=== PATIENT | male | born 1960 | race Caucasian/White ===

== ENCOUNTER → 2021-01-23 12:52 | Outpatient (CLI) | payer OTHER, SELFPAY ==
--- NOTE | 2021-01-23 15:33 | NEURO ---
NCS and/or EMG Patient Report Ordering Doctor: Navid Simmons DATE OF SERVICE: 01/23/21 Tom presents for electrodiagnostic testing of the right upper limb. He reports pain in the right elbow and numbness in the right hand. Electrodiagnostic findings: Right median motor nerve demonstrates prolonged distal latency with normal amplitude and reduced conduction velocity. Right ulnar motor nerve demonstrates normal distal latency and amplitude with an approximately 30% drop in conduction across the elbow. Prolonged right median sensory latency at the wrist and palm. On needle EMG, all muscles tested in the right upper limb showed no evidence of denervation with normal motor unit action potentials. Electrodiagnostic impression: This is an abnormal study in the right upper limb 1 Electrodiagnostic findings demonstrate right-sided median mononeuropathy. This is consistent with a mild to moderate right carpal tunnel syndrome. 2. Electrodiagnostic evidence demonstrates right ulnar neuropathy, consistent with a moderate right cubital tunnel syndrome.
== END ==
PROVIDERS: PCP Preventive Medicine Occupational Medicine; Referring Provider Orthopaedic Surgery; Visit Provider Orthopaedic Surgery
DX: M70.21 Olecranon bursitis, right elbow (principal)
CPT/HCPCS: 95886; 95910

== ENCOUNTER → 2025-04-24 | Outpatient (CLI) | payer OTHER, SELFPAY ==
--- OUTSIDE RECORDS SUMMARY | 2025-04-24 06:51 | XMS RPT_ITS | CCD ---
Author Organization [facility] Care Team Providers Care Journeyman Electrician Pv Installer Name Role Phone JOSE L MCGUIRE DO Primary Care Physician [phone] Mendy PT, Susie Unavailable Unavailable Jose L Mcguire Primary Care Provider [phone] JOSE L MCGUIRE DO Primary Care Physician [phone] JOHN CANADA Attending Unavailable JOSE L MCGUIRE DO Primary Care Unavailable TAMIKO SARKAR MD Attending Unavailable JOSE L MCGUIRE DO Primary Care Unavailable LEONCIO CAUSEY PA-C Attending Unavailable JOSE L MCGUIRE DO Primary Care Unavailable LEONCIO CAUSEY PA-C Attending Unavailable JOSE L MCGUIRE DO Primary Care Unavailable TAMIKO SARKAR MD Attending Unavailable SHAYLA ARREOLA, JOSE L Primary Care Unavailable TAMIKO SARKAR MD Attending Unavailable JOSE L MCGUIRE DO Primary Care Unavailable TAMIKO SARKAR MD Attending Unavailable JOSE L MCGUIRE DO Primary Care Unavailable TAMIKO SARKAR MD Attending Unavailable JOSE L MCGUIRE DO Primary Care Unavailable LUIS ALFREDO VIZCAINO, SOLOMON Primary Care JOHN Smith Attending Unav JOHN Montenegro Attending Unav ailable JOSE L MCGUIRE DO Primary Care Unavailable LUIS ALFREDO VIZCAINO, SOLOMON Primary Care Physician TAMIKO SARKAR MD Attending Unavailable LUIS ALFREDO VIZCAINO, SOLOMON Primary Care Anel ROYAL MD, DR CAMILO Milian Attending Unavailab le LUIS ALFREDO VIZCAINO, SOLOMON Primary Care Anel BLAKE PA-C, YVONNE [place] Attending Unavaila ble LUIS ALFREDO VIZCAINO, SOLOMON Primary Care Anel LOBATO APRN-CARMINE, SOLOMON Primary Care Anel SARKAR MD, TAMIKO Bruce Attending Unavailable JOSE L MCGUIRE DO Primary Care Unavailable TAMIKO SARKAR MD Attending Unavailable NANCIE VIZCAINO, JOHN Matam[place]os Attending JOSE L Hidalgo DO Primary Care Unavailable Camilo Royal Referring Unavailable Camilo Royal Attending Unavailable Cristóbal Childs Primary Care Unavailable Allergies Allergy Classification Reported Allergen(s) Allergy Type Date of Onset Reaction(s) Facility (20 sources) Penicillin; Translations: [penicillin] Drug Allergy Rash [facility] (2 sources) Penicillins Drug Allergy 2 [facility] (4 sources) Simvastatin; Translations: [simvastatin] Drug Allergy 4 Muscle pain (finding) [facility] ([facility]) Penicillins Drug allergy (disorder) 6 [facility] Medications Current Medications Medication Drug Class(es) Dates Sig (Normalized) Sig (Original) acetaminophen 325 mg / oxyCODONE hydrochloride 5 mg oral tablet (1 source) Opioid Agonist Start: 04-06-2022 End: 04-11-2022 take 1 tablet by mouth every eight hours as needed for pain oxyCODONE-acetam inophen (PERCOCET) 5-325 mg tablet Indications: Multiple contusions of trunk, initial encounter , Multiple leg contusions, left, initial encounter , Contusion of elbow and forearm, right, initial encounter Take 1 tablet by mouth every 8 hours as needed for pain for up to 5 days. 15 tablet 0 04/06/2022 04/11/2022 Active Comment on above: Take 1 tablet by stephen every 8 hours as needed for pain for up to 5 days. baclofen 10 mg oral tablet (4 sources) gamma-Aminobutyri c Acid-ergic Agonist Start: 06-03-2022 take 1-2 tablets by mouth three times daily as needed for muscle spasms baclofen 10 mg oral tablet 1-2 tabs, Oral, TID, PRN muscle spasm, # 40 tab(s), 0 Refill(s), Pharmacy: [facility] #[id number], Neck muscle spasm, 68.3, cm, 06/03/22 10:19:00 EDT, Height Start Date: 06/03/22 Status: Ordered calcium carbonate 600 MG / ergocalciferol 200 UNT Oral Capsule (20 sources) Provitamin D2 Compound Start: 07-30-2020 take 1 capsule by mouth twice daily calcium-vitamin D 600 mg-200 intl units (5 mcg) oral capsule Dose = 1 cap(s), Oral, BID, 0 Refill(s) Start Date: 07/30/20 Status: Ordered Medication Dispense Status: Completed Total Allowed Fills: 1 Fills Dispensed: 0 Start: 07-30-2020 take 1 capsule by me ut twice daily calcium-vitamin D 600 mg-200 intl units (5 mcg) oral capsule Dose = 1 cap(s), Oral, BID, 0 Refill(s) Start Date: 07/30/20 Status: Ordered Repeat number: 1 Start: 07-30-2020 take 1 capsule by me ut twice daily calcium-vitamin D 600 mg-200 intl units (5 mcg) oral capsule Dose = 1 cap(s), Oral, BID, 0 Refill(s) Start Date: 07/30/20 Status: Ordered cyclobenzaprine hydrochloride 10 mg oral tablet (2 sources) Muscle Relaxant Start: 05-30-2022 End: 05-31-2022 take 1 tablet by mouth three times daily Flexeril use cyclobenzaprine Dose : 10 mg =, Oral, TID, # 20 tab(s), 0 Refill(s), 05/31/22 18:15:00 EDT, Cervical strain Start Date: 05/30/22 Stop Date: 05/31/22 Status: Ordered Start: 02-14-2022 End: 02-24-2022 cyclobenzaprine 5 mg oral ta blet Dose : 5 mg = 1 tab(s), Oral, TID, NOTE!: Only if Skelaxin not covered by insurance!, X 10 day(s), # 30 tab(s), 0 Refill(s), 02/24/22 15:30:00 EDT, [id number], Fall from ladder Left elbow pain, 173.5, cm, 02/14/22 15:00:00 EDT... Start Date: 02/14/22 Stop Date: 02/24/22 Status: Ordered DME MISCellaneous (20 sources) Start: 01-07-2021 DME MISCellane ous See Instructions, Please provide 1 pair of bilateral wrist/hand splint for carpal tunnel. Size to fit. Diagnosis: g56.00 On at at bedtime off in a.m. also may wear for repetitive activities., # 1 EA, 0 Refill(s), Carpal tunnel syndrome, Dosing Weight Start Date: 01/07/21 Status: Ordered Medication Dispense Status: Completed Quantity: 1.0 Unit: EA Total Allowed Fills: 1 Fills Dispensed: 0 Indications: Carpal tunnel syndrome, unspecified upper limb; Start: 01-07-2021 DME MISCellane ous See Instructions, Please provide 1 pair of bilateral wrist/hand splint for carpal tunnel. Size to fit. Diagnosis: g56.00 On at at bedtime off in a.m. also may wear for repetitive activities., # 1 EA, 0 Refill(s), Carpal tunnel syndrome, Dosing Weight Start Date: 01/07/21 Status: Ordered Quantity: 1.0 Unit: EA Repeat number: 1 Indications: Carpal tunnel syndrome, unspecified upper limb; Start: 01-07-2021 DME MISCellane ous See Instructions, Please provide 1 pair of bilateral wrist/hand splint for carpal tunnel. Size to fit. Diagnosis: g56.00 On at at bedtime off in a.m. also may wear for repetitive activities., # 1 EA, 0 Refill(s), Carpal tunnel syndrome, Dosing Weight Start Date: 01/07/21 Status: Ordered Quantity: 1.0 Unit: EA Repeat number: 1 Indication: Carpal tunnel syndrome, unspecified upper limb Start: 01-07-2021 DME MISCellane ous See Instructions, Please provide 1 pair of bilateral wrist/hand splint for carpal tunnel. Size to fit. Diagnosis: g56.00 On at at bedtime off in a.m. also may wear for repetitive activities., # 1 EA, 0 Refill(s), Carpal tunnel syndrome, Dosing Weight Start Date: 01/07/21 Status: Ordered doxycycline hyclate 100 mg oral capsule (1 source) Tetracycline-class Drug Start: 04-06-2022 End: 04-16-2022 take 1 capsule by mouth twice daily doxycycline hyclate (VIBRAMYCIN) 100 mg capsule Indications: Multiple leg contusions, left, initial encounter Take 1 capsule by mouth twice daily for 10 days. 20 capsule 0 04/06/2022 04/16/2022 Active Comment on above: Take 1 capsule by mo [facility] twice daily for 10 days. 24 hr empagliflozin 12.5 mg / metFORMIN hydrochloride 1000 mg extended release oral tablet (20 sources) Biguanide, Sodium-Glucose Cotransporter 2 Inhibitor Start: 10-26-2020 take 1 tablet by mouth once daily Synjardy XR 12.5 mg-1000 mg oral tablet, extended release Dose = 2 tab(s), Oral, qDay, 0 Refill(s) Start Date: 10/26/20 Status: Ordered Medication Dispense Status: Completed Total Allowed Fills: 1 Fills Dispensed: 0 take 1 tablet by stephen th once daily at breakfast empagliflozin-metFORMIN (SYNJARDY) 12.5- 500 mg tab Take 1 tablet by mouth daily with breakfast. 0 Active Comment on above: Take 1 tablet by stephen daily with breakfast. ezetimibe 10 mg oral tablet (2 sources) Dietary Cholesterol Absorption Inhibitor Start: 01-02-2025 take 1 tablet by mouth once daily ezetimibe 10 mg oral tablet TAKE 1 TABLET BY MOUTH EVERY DAY Start Date: 01/02/25 Status: Ordered Medication Dispense Status: Completed Total Allowed Fills: 1 Fills Dispensed: 0 lidocaine 0.05 mg/mg medicated patch (1 source) Antiarrhythmic, Amide Local Anesthetic Start: 05-30-2022 End: 05-31-2022 lidocaine 5% topical patch Apply 1 patch(es), Transdermal, Daily, # 20 patch(es), 0 Refill(s), Cervical strain, 114 Start Date: 05/30/22 Stop Date: 05/31/22 Status: Ordered lisinopril 20 mg oral tablet (20 sources) Angiotensin Converting Enzyme Inhibitor Start: 01-02-2025 End: 07-01-2025 lisinopril 20 mg oral tablet Dose : 20 mg = 1 tab(s), Oral, Daily, # 90 tab(s), 1 Refill(s), Pharmacy: [facility] #[id number], 172, cm, 07/25/24 15:03:00 EST, Height, kg, 07/25/24 15:03:00 EST, Dosing Weight Start Date: 01/02/25 Stop Date: 07/01/25 Status: Ordered Medication Dispense Status: Completed Quantity: 90.0 Unit: tab(s) Total Allowed Fills: 2 Fills Dispensed: 0 Start: 05-26-2024 lisinopril 20 mg oral tablet Dose : 20 mg = 1 tab(s), Oral, Daily, # 100 tab(s), 3 Refill(s), Pharmacy: [facility] #[id number], 175.3, cm, 04/01/24 14:14:00 EDT, Height, kg, 04/01/24 14:14:00 EDT, Dosing Weight Start Date: 05/26/24 Status: Ordered Quantity: 100.0 Unit: tab(s) Repeat number: 4 Start: 07-20-2023 lisinopril 20 mg oral tablet Dose : 20 mg = 1 tab(s), Oral, Daily, # 100 tab(s), 3 Refill(s), [id number], 172, cm, 07/13/23 15:57:00 EST, Height, kg, 07/13/23 15:57:00 EST, Dosing Weight Start Date: 07/20/23 Status: Ordered Start: 04-27-2022 lisinopril 20 mg oral tablet Dose : 20 mg = 1 tab(s), Oral, Daily, # 90 tab(s), 3 Refill(s), [facility]acy: [facility] #[id number], 173.5, cm, 02/24/22 16:24:00 EDT, Height, kg, 02/24/22 16:24:00 EDT, Dosing Weight Start Date: 04/27/22 Status: Ordered Start: 02-04-2021 take 1 tablet by stephen once daily lisinopril (ZESTRIL, PRINIVIL) 20 mg tablet Take 20 mg by mouth once daily. 0 01/18/2022 Active Comment on above: Take 20 mg by mouth once daily. naproxen 500 mg oral tablet (1 source) Nonsteroidal Anti-inflammatory Drug Start: 05-30-2022 End: 05-31-2022 naproxen 500 mg oral tablet Dose : 500 mg = 1 tab(s), Oral, BID, # 14 tab(s), 0 Refill(s), 05/31/22 18:15:00 EDT, Cervical strain Start Date: 05/30/22 Stop Date: 05/31/22 Status: Ordered niacin 500 mg oral tablet (20 sources) Nicotinic Acid Start: 07-04-2019 take 1 mg by mouth once daily niacin 500 mg oral tablet mg = tab(s), Oral, qDay, 0 Refill(s) Start Date: 07/04/19 Status: Ordered Medication Dispense Status: Completed Total Allowed Fills: 1 Fills Dispensed: 0 Pen needles 4 mm (20 sources) Start: 10-13-2019 Pen needles 4 mm See Instructions, Use as directed weekly, # 25 EA, 0 Refill(s), Pharmacy: [address], Diabetes mellitus, 173, cm, 10/11/19 16:11:00 EST, Height, 125.8, kg, 10/11/19 16:11:00 EST, Dosing Weight Start Date: 10/13/19 Status: Ordered Medication Dispense Status: Completed Quantity: 25.0 Unit: EA Total Allowed Fills: 1 Fills Dispensed: 0 Indications: Type 2 diabetes mellitus without complications; Start: 10-13-2019 Pen needles 4 mm See Instructions, Use as directed weekly, # 25 EA, 0 Refill(s), Pharmacy: [address], Diabetes mellitus, 173, cm, 10/11/19 16:11:00 EST, Height, 125.8, kg, 10/11/19 16:11:00 EST, Dosing Weight Start Date: 10/13/19 Status: Ordered Quantity: 25.0 Unit: EA Repeat number: 1 Indications: Type 2 diabetes mellitus without complications; Start: 10-13-2019 Pen needles 4 mm See Instructions, Use as directed weekly, # 25 EA, 0 Refill(s), Pharmacy: [address], Diabetes mellitus, 173, cm, 10/11/19 16:11:00 EST, Height, 125.8, kg, 10/11/19 16:11:00 EST, Dosing Weight Start Date: 10/13/19 Status: Ordered Quantity: 25.0 Unit: EA Repeat number: 1 Indication: Type 2 diabetes mellitus without complications Start: 10-13-2019 Pen needles 4 mm See Instructions, Use as directed weekly, # 25 EA, 0 Refill(s), Pharmacy: [address] Diabetes mellitus, 173, cm, 10/11/19 16:11:00 EST, Height, 125.8, kg, 10/11/19 16:11:00 EST, Dosing Weight Start Date: 10/13/19 Status: Ordered 1 mg dose 1.5 ml semaglutide 1.34 mg/ml pen injector (20 sources) Start: 10-26-2020 Ozempic (1 mg dose) 2 mg/1.5 mL subcutaneous solution Dose : 1 mg =, Subcutaneous, qWeek, # 3 mL, 0 Refill(s) Start Date: 10/26/20 Status: Ordered Medication Dispense Status: Completed Quantity: 3.0 Unit: mL Total Allowed Fills: 1 Fills Dispensed: 0 sildenafil 100 mg oral tablet (5 sources) Phosphodiesterase 5 Inhibitor Start: 01-02-2025 sildenafil 100 mg oral tablet Dose : 100 mg = 1 tab(s), Oral, qDay, PRN as needed for erectile dysfunction, # 20 tab(s), 0 Refill(s), Pharmacy: [facility] #[id number], ED (erectile dysfunction), 172, cm, 07/25/24 15:03:00 EST, Height, kg, 07/25/24 15:03:00 EST, Dosing Weight Start Date: 01/02/25 Status: Ordered Medication Dispense Status: Completed Quantity: 20.0 Unit: tab(s) Total Allowed Fills: 1 Fills Dispensed: 0 Indications: Male erectile dysfunction, unspecified; Start: 07-01-2024 sildenafil 100 mg oral tablet Dose : 100 mg = 1 tab(s), Oral, qDay, PRN as needed for erectile dysfunction, # 20 tab(s), 0 Refill(s), Pharmacy: [facility] #[id number], ED (erectile dysfunction), 175.3, cm, 07/01/24 10:09:00 EST, Height, kg, 07/01/24 10:09:00 EST, Dosing Weight Start Date: 07/01/24 Status: Ordered Quantity: 20.0 Unit: tab(s) Repeat number: 1 Indications: Male erectile dysfunction, unspecified; tadalafil 20 mg oral tablet ( sources) Phosphodiesterase 5 Inhibitor Start: 01-25-2024 tadalafil 20 mg oral tablet Dose : 20 mg = 1 tab(s), Oral, qDay, Take 1 hour prior to sexual activity, # 30 tab(s), 1 Refill(s), Pharmacy: [facility] #[id number], ED (erectile dysfunction), 172, cm, 01/25/24 15:43:00 EDT, Height, kg, 01/25/24 15:43:00 EDT, Dosing Weight Start Date: 01/25/24 Status: Ordered Quantity: 30.0 Unit: tab(s) Repeat number: 2 Indications: Male erectile dysfunction, unspecified; Start: 02-04-2021 Cialis 20 mg o ral tablet Dose : 20 mg = 1 tab(s), Oral, qDay, Take 1 hour prior to sexual activity, # 30 tab(s), 1 Refill(s), Pharmacy: [id number] [facility], ED (erectile dysfunction), 174, cm, 02/04/21 8:41:00 EDT, Height, kg, 02/04/21 8:41:00 EDT, Dosing Weight Start Date: 02/04/21 Status: Ordered tiZANidine 4 mg oral tablet (1 source) Central alpha-2 Adrenergic Agonist Start: 04-06-2022 End: 04-09-2022 take 1 tablet by mouth every eight hours as needed tiZANidine (ZANAFLEX) 4 mg tablet Indications: Multiple contusions of trunk, initial encounter , Multiple leg contusions, left, initial encounter , Contusion of elbow and forearm, right, initial encounter Take 1 tablet by mouth every 8 hours as needed for up to 3 days. 9 tablet 0 04/06/2022 04/09/2022 Active Comment on above: Take 1 tablet by [facility] every 8 hours as needed for up to 3 days. Vitamin B12 250 mcg oral tablet (10 sources) Start: 01-25-2024 Vitamin B12 25 0 mcg oral tablet Dose : 250 mcg = 1 tab(s), Oral, qDay, # 30 tab(s), 0 Refill(s) Start Date: 01/25/24 Status: Ordered Medication Dispense Status: Completed Quantity: 30.0 Unit: tab(s) Total Allowed Fills: 1 Fills Dispensed: 0 Start: 01-25-2024 Vitamin B12 25 0 mcg oral tablet Dose : 250 mcg = 1 tab(s), Oral, qDay, # 30 tab(s), 0 Refill(s) Start Date: 01/25/24 Status: Ordered Quantity: 30.0 Unit: tab(s) Repeat number: 1 Start: 01-25-2024 Vitamin B12 25 0 mcg oral tablet Dose : 250 mcg = 1 tab(s), Oral, qDay, # 30 tab(s), 0 Refill(s) Start Date: 01/25/24 Status: Ordered Completed/Discontinued Medications Medication Drug Class(es) Dates Sig (Normalized) Sig (Original) bacitracin 0.5 unt/mg topical ointment (1 source) Start: 04-06-2022 End: 04-06-2022 bacitracin 500 unit/gram 1 application topical ointment Start: 04-06-2022 End: 04-06-2022 bacitracin 500 unit/gram 1 a pplication topical ointment dexamethasone 4 mg oral tablet (1 source) Corticosteroid Start: 04-06-2022 take 1 tablet by mouth once daily dexAMETHasone (DECADRON) 4 mg tablet Indications: Multiple contusions of trunk, initial encounter , Multiple leg contusions, left, initial encounter , Contusion of elbow and forearm, right, initial encounter Take 1 tablet by mouth once daily. 4 tablet 0 04/06/2022 Active Comment on above: Take 1 tablet by stephen th once daily. glimepiride 2 mg oral tablet (2 sources) Sulfonylurea take 1 tablet by mouth once daily at breakfast glimepiride (AMARYL) 2 mg tablet Take 2 mg by mouth daily with breakfast. 0 Active Comment on above: Take 2 mg by mouth d aily with breakfast. metaxalone 800 mg oral tablet (3 sources) Start: 02-14-2022 End: 02-24-2022 take 1 tablet by mouth three times daily metaxalone (SKELAXIN) 800 mg tablet take 1 tablet by mouth three times a day for 10 days 0 02/14/2022 Active Comment on above: take 1 tablet by stephen th three times a day for 10 days OZEMPIC 1 mg/dose (4 mg/3 mL) pen injector (2 sources) Start: 02-24-2022 inject 1 dose by subcutaneous injection every week OZEMPIC 1 mg/dose (4 mg/3 mL) pen injector inject 1 dose (1 MG) subcutaneously every week as directed 0 02/24/2022 Active Comment on above: inject 1 dose (1 MG) subcutaneously every week as directed Problems Problem Classification Problem Date Documented Date Episodic/Chronic Diabetes mellitus without complication (20 sources) Type 2 diabetes mellitus without complication 02-14-2022 Chronic Disorders of lipid metabolism (20 sources) Mixed hyperlipidemia 07-04-2019 Chronic Essential hypertension (20 sources) Essential hypertension 07-04-2019 Chronic Osteoarthritis (20 sources) Osteoarthritis of joint of left shoulder region; Translations: [Osteoarthritis of left hip joint] 01-04-2020 Chronic Other acquired deformities (1 source) Spondylolisthesis, lumbosacral region; Translations: [Spondylolisthesis, lumbosacral region] Onset: 04-21-2025 Episodic Other connective tissue disease (10 sources) Myalgia caused by statin 01-25-2024 Episodic Other connective tissue disease (1 source) Trochanteric bursitis of right hip; Translations: [Trochanteric bursitis, right hip] Episodic Other connective tissue disease (1 source) Trochanteric bursitis, right hip; Translations: [Trochanteric bursitis, right hip] Onset: 01-12-2025 Episodic Other inflammatory condition of skin (20 sources) Rosacea 11-05-2020 Chronic Other male genital disorders (20 sources) Impotence 07-04-2019 Chronic Other nervous system disorders (20 sources) Carpal tunnel syndrome 01-07-2021 Chronic Other nervous system disorders (1 source) Carpal tunnel syndrome of right wrist; Translations: [Carpal tunnel syndrome, right upper limb] Chronic Other non-traumatic joint disorders (20 sources) Rotator cuff arthropathy of left shoulder 07-24-2020 Episodic Other nutritional; endocrine; and metabolic disorders (20 sources) Morbid obesity 07-04-2019 Chronic Other nutritional; endocrine; and metabolic disorders (2 sources) Body mass index 30+ - obesity 01-02-2025 Chronic Residual codes; unclassified (20 sources) Obstructive sleep apnea syndrome 07-04-2019 Chronic Residual codes; unclassified (20 sources) History of arthroscopic procedure on shoulder 02-14-2022 Episodic Spondylosis; intervertebral disc disorders; other back problems (2 sources) Degeneration of cervical intervertebral disc; Translations: [Other cervical disc degeneration, unspecified cervical region] Onset: 01-12-2025 Chronic Spondylosis; intervertebral disc disorders; other back problems (20 sources) Backache; Translations: [Lumbar radiculopathy] Onset: 01-12-2025 01-06-2021 Episodic Sprains and strains (2 sources) Injury of muscle and tendon at neck level; Translations: [Strain of muscle, fascia and tendon at neck level, initial encounter] Onset: 05-30-2022 Episodic Superficial injury; contusion (5 sources) Contusion of multiple sites of trunk; Translations: [Contusion of thorax, unspecified, initial encounter] Episodic Unclassified (20 sources) Patient encounter status 12-26-2019 Unclassified (19 sources) Statin declined 02-24-2022 Unclassified (13 sources) Entrapment of left ulnar nerve at elbow 07-13-2023 Unclassified (4 sources) Statin not tolerated (context-dependent category) 07-25-2024 Results Test Name Value Interpretation Reference Range Facility .GFRon 04-01-2025 Estimated Glomerular Filtration Rate 60 ml/min/1.73sqm Normal [facility] Comment on above: Result Comment: Stages of Chronic Kidney Disease (CKD) Stage Description eGFR(ml/min/1.73 sq.m.) CKD 1 Normal kidney function or >=90 normal kindney function with possible kidney damage (ex. Proteinuria) CKD 2 Kidney damage with mild loss 60-89 of kidney function CKD 3a Mild to moderate loss of kidney 45-59 function CKD 3b Moderate to severe loss of 30-44 of kindey function CKD 4 Severe loss of kidney function 15-29 CKD 5 Kidney failure <15 Note: (go live 2024) the eGFR calculation was updated to the 2020 CKD-EPI creatinine equation without a race factor to calculate the eGFR results. Performed By: #### G , CMP #### [facility] [address] [place] [id number] A1Con 04-01-2025 Glucose [Mass/Vol] 160 mg/dL Normal [facility] Comment on above: Result Comment: Anne mated Average Glucose calculated by equation ((28.7xA1C)-46.7) Estimated average glucose (eAG) is a calculated value from Hemoglobin A1C and is parts representative of the average blood glucose level in the last 2-3 month period. Normal range: less than 114 mg/dL Performed By: #### A 1C, TSH, LIPID #### [address] [address] HbA1c (Bld) [Mass fraction] 7.2 % High 4.3-6.4 [facility] Comment on above: Performed By: #### A 1C, TSH, LIPID #### [place] [id number] CMPon 04-01-2025 Albumin Level 3.6 G/dL Normal 3.4-4.8 [facility] Comment on above: Performed By: #### G FR, CMP #### [place] [id number] Albumin/Globulin [Mass ratio] 0.9 {ratio} Low 1.1-2.5 [facility] Comment on above: Performed By: #### G FR, CMP #### [place] [id number] ALP [Catalytic activity/Vol] 67 U/L Normal 40-135 [facility] Comment on above: Performed By: #### G FR, CMP #### [place] [id number] ALT [Catalytic activity/Vol] 32 U/L Normal 16-63 [facility] Comment on above: Performed By: #### G FR, CMP #### [place] [id number] AST [Catalytic activity/Vol] 19 U/L Normal 10-40 [facility] Comment on above: Performed By: #### G FR, CMP #### [place] [id number] Bili Total 0.5 mg/dL Normal 0.2-1.0 [facility] Comment on above: Result Comment: Use of this assay is not recommended for patients undergoing treatment with eltrombopag due to the potential for falsely elevated results. Performed By: #### G FR, CMP #### [address] [address] BUN/Creatinine Ratio 31 ratio High 7-27 [facility] Comment on above: Performed By: #### G FR, CMP #### [address] [address] Calcium [Mass/Vol] 9.9 mg/dL Normal 8.4-10.2 [facility] Comment on above: Performed By: #### G FR, CMP #### [address] [address] Chloride [Moles/Vol] 104 mmol/L Normal 98-107 [facility] Comment on above: Performed By: #### G FR, CMP #### [place] [id number] CO2 [Moles/Vol] 26 mmol/L Normal 23-31 [facility] Comment on above: Performed By: #### G FR, CMP #### [place] [id number] Creatinine [Mass/Vol] 1.31 mg/dL High 0.67-1.17 [facility] Comment on above: Performed By: #### G FR, CMP #### [address] [address] Electrolyte Balance 11.0 mEq/L Normal 4.0-15.0 [facility] Comment on above: Performed By: #### G FR, CMP #### [address] [address] Globulin 3.8 G/dL Normal 2.7-4.4 [facility] Comment on above: Performed By: #### G FR, CMP #### [address] [address] Glucose [Mass/Vol] 148 mg/dL High 80-115 [facility] Comment on above: Performed By: #### G FR, CMP #### [address] [address] Potassium [Moles/Vol] 4.7 mmol/L Normal 3.5-5.1 [facility] Comment on above: Performed By: #### G , CMP #### [place] [id number] [place], [place] [address] Sodium [Moles/Vol] 141 mmol/L Normal 136-145 [facility] Comment on above: Performed By: #### G FR, CMP #### [id number] [place], [place] [address] Total Protein 7.4 G/dL Normal 6.4-8.2 [facility] Comment on above: Performed By: #### G , CMP #### [id number] [place], [place] [address] Urea nitrogen [Mass/Vol] 40 mg/dL High 7-18 [facility] Comment on above: Performed By: #### G , CMP #### [address] [address] LABORATORYOrdered By: SYSTEM SYSTEM on 04-01-2025 Albumin BCP dye [Mass/Vol] 3.6 G/dL Normal 3.4 - 4.8 G/dL AO ADM SS Albumin/Globulin [Mass ratio] 0.9 {ratio} Low 1.1 - 2.5 ratio AO ADM SS ALP [Catalytic activity/Vol] 67 U/L Normal 40 - 135 U/L AO ADM SS ALT With P-5'-P [Catalytic activity/Vol] 32 U/L Normal 16 - 63 U/L AO ADM SS AST With P-5'-P [Catalytic activity/Vol] 19 U/L Normal 10 - 40 U/L AO ADM SS Bilirubin [Mass/Vol] 0.5 mg/dL Normal 0.2 - 1 .0 mg/dL AO ADM SS Comment on above: Interpretive Data: U se of this assay is not recommended for patients undergoing treatment with eltrombopag due to the potential for falsely elevated results. Calcium [Mass/Vol] 9.9 mg/dL Normal 8.4 - 10. 2 mg/dL AO ADM SS Chloride [Moles/Vol] 104 mmol/L Normal 98 - 10 7 mmol/L AO ADM SS CO2 [Moles/Vol] 26 mmol/L Normal 23 - 31 mmol/L AO ADM SS Creatinine [Mass/Vol] 1.31 mg/dL High 0.67 - 1.17 mg/dL AO ADM SS Electrolyte Balance 11.0 mEq/L Normal 4.0 - 15 .0 mEq/L AO ADM SS Estimated Glomerular Filtration Rate 60 ml/min/1.73sqm Invalid Interpretation Code AO Chemistry S Comment on above: Interpretive Data: Stages of Chronic Kidney Disease (CKD) Stage Description eGFR(ml/min/1.73 sq.m.) CKD 1 Normal kidney function or >=90 normal kindney function with possible kidney damage (ex. Proteinuria) CKD 2 Kidney damage with mild loss 60-89 of kidney function CKD 3a Mild to moderate loss of kidney 45-59 function CKD 3b Moderate to severe loss of 30-44 of kindey function CKD 4 Severe loss of kidney function 15-29 CKD 5 Kidney failure <15 Note: (go live 2024) the eGFR calculation was updated to the 2020 CKD-EPI creatinine equation without a race factor to calculate the eGFR results. Globulin 3.8 G/dL Normal 2.7 - 4.4 G/dL AO ADM SS Glucose [Mass/Vol] 160 mg/dL Invalid Interpretation Code AO Chemistry S Comment on above: Interpretive Data: E stimated average glucose (eAG) is a calculated value from Hemoglobin A1C and is parts representative of the average blood glucose level in the last 2-3 month period. Normal range: less than 114 mg/dL Glucose [Mass/Vol] 148 mg/dL High 80 - 115 mg/dL AO ADM SS HbA1c (Bld) [Mass fraction] 7.2 % High 4.3 - 6.4 % AO ADM SS Potassium [Moles/Vol] 4.7 mmol/L Normal 3.5 - 5.1 mmol/L AO ADM SS Protein [Mass/Vol] 7.4 G/dL Normal 6.4 - 8.2 G/dL AO ADM SS Sodium [Moles/Vol] 141 mmol/L Normal 136 - 145 mmol/L AO ADM SS TSH Qn 1.50 m[IU]/L Normal 0.36 - 3.74 mcIU/mL AO ADM SS Urea nitrogen [Mass/Vol] 40 mg/dL High 7 - 18 mg/dL AO ADM SS Urea nitrogen/Creatinine [Mass ratio] 31 ratio High 7 - 27 ratio AO ADM SS LABORATORYOrdered By: Smitha Rodriguez on 04-01-2025 Cholesterol [Mass/Vol] 179 mg/dL Normal 0 - 200 mg/dL AO ADM SS Comment on above: Interpretive Data: C holesterol Reference Interval: Less than 200 Desirable 200-239 Borderline high risk 240 and above High risk Cholesterol in HDL [Mass/Vol] 51 mg/dL Normal 40 - 60 mg/dL AO ADM SS Cholesterol in LDL [Mass/Vol] 108 mg/dL Normal 0 - 130 mg/dL AO ADM SS Triglyceride [Mass/Vol] 101 mg/dL Normal 0 - 150 mg/dL AO ADM SS Comment on above: Interpretive Data: T riglyceride Reference Interval: Less than 150 Normal 150-199 Borderline high risk 200-499 High risk 500 or higher Very high risk LIPIDon 04-01-2025 Cholesterol [Mass/Vol] 179 mg/dL Normal 0-200 [facility] Comment on above: Result Comment: Chol esterol Reference Interval: Less than 200 Desirable 200-239 Borderline high risk 240 and above High risk Performed By: #### A 1C, TSH, LIPID #### [place] [id number] Cholesterol in HDL [Mass/Vol] 51 mg/dL Normal 40-60 [facility] Comment on above: Performed By: #### A 1C, TSH, LIPID #### [address] [address] Cholesterol in LDL [Mass/Vol] 108 mg/dL Normal 0-130 [facility] Comment on above: Performed By: #### A 1C, TSH, LIPID #### [address] [address] Triglyceride [Mass/Vol] 101 mg/dL Normal 0-150 [facility] Comment on above: Result Comment: Trig lyceride Reference Interval: Less than 150 Normal 150-199 Borderline high risk 200-499 High risk 500 or higher Very high risk Performed By: #### A 1C, TSH, LIPID #### [address] [address] TSHon 04-01-2025 TSH Qn 1.50 m[IU]/L Normal 0.36-3.74 [facility] Comment on above: Performed By: #### A 1C, TSH, LIPID #### [address] [address] .GFRon 12-31-2024 Estimated Glomerular Filtration Rate 58 ml/min/1.73sqm Normal [facility] Comment on above: Result Comment: Stages of Chronic Kidney Disease (CKD) Stage Description eGFR(ml/min/1.73 sq.m.) CKD 1 Normal kidney function or >=90 normal kindney function with possible kidney damage (ex. Proteinuria) CKD 2 Kidney damage with mild loss 60-89 of kidney function CKD 3a Mild to moderate loss of kidney 45-59 function CKD 3b Moderate to severe loss of 30-44 of kindey function CKD 4 Severe loss of kidney function 15-29 CKD 5 Kidney failure <15 Note: (go live 2024) the eGFR calculation was updated to the 2020 CKD-EPI creatinine equation without a race factor to calculate the eGFR results. Performed By: #### C MP, A1C, GFR #### [address] [address] #### B12 #### [place] [address] A1Con 12-31-2024 Glucose [Mass/Vol] 163 mg/dL Normal [facility] Comment on above: Result Comment: Anne mated Average Glucose calculated by equation ((28.7xA1C)-46.7) Estimated average glucose (eAG) is a calculated value from Hemoglobin A1C and is parts representative of the average blood glucose level in the last 2-3 month period. Normal range: less than 114 mg/dL Performed By: #### C MP, A1C, GFR #### [address] [address] #### B12 #### [address] [address] HbA1c (Bld) [Mass fraction] 7.3 % High 4.3-6.4 [facility] Comment on above: Performed By: #### C MP, A1C, GFR #### [address] [address] #### B12 #### [address] [address] B12on 12-31-2024 Cobalamin (Vitamin B12) [Mass/Vol] 936 pg/mL High 211-911 [facility] Comment on above: Performed By: #### C MP, A1C, GFR #### [address] [address] #### B12 #### [address] [address] CMPon 12-31-2024 Albumin Level 3.7 G/dL Normal 3.4-4.8 [facility] Comment on above: Performed By: #### C MP, A1C, GFR #### [address] [address] #### B12 #### [address] [address] Albumin/Globulin [Mass ratio] 0.9 {ratio} Low 1.1-2.5 [facility] Comment on above: Performed By: #### C MP, A1C, GFR #### [address] [address] #### B12 #### [address] [address] ALP [Catalytic activity/Vol] 67 U/L Normal 40-135 [facility] Comment on above: Performed By: #### C MP, A1C, GFR #### [address] [address] #### B12 #### [address] [address] ALT [Catalytic activity/Vol] 32 U/L Normal 16-63 [facility] Comment on above: Performed By: #### C MP, A1C, GFR #### [address] [address] #### B12 #### [address] [address] AST [Catalytic activity/Vol] 17 U/L Normal 10-40 [facility] Comment on above: Performed By: #### C MP, A1C, GFR #### [address] [address] #### B12 #### [address] [address] Bili Total 0.9 mg/dL Normal 0.2-1.0 [facility] Comment on above: Result Comment: Use of this assay is not recommended for patients undergoing treatment with eltrombopag due to the potential for falsely elevated results. Performed By: #### C MP, A1C, GFR #### [place] [address] #### B12 #### [place] [address] BUN/Creatinine Ratio 28 ratio High 7-27 [facility] Comment on above: Performed By: #### C MP, A1C, GFR #### [place] [address] #### B12 #### [address] [address] Calcium [Mass/Vol] 10.2 mg/dL Normal 8.4-10.2 [facility] Comment on above: Performed By: #### C MP, A1C, GFR #### [place] [address] #### B12 #### [address] [address] Chloride [Moles/Vol] 103 mmol/L Normal 98-107 [facility] Comment on above: Performed By: #### C MP, A1C, GFR #### [place] [address] #### B12 #### [address] [address] CO2 [Moles/Vol] 25 mmol/L Normal 23-31 [facility] Comment on above: Performed By: #### C MP, A1C, GFR #### [place] [address] #### B12 #### [address] [address] Creatinine [Mass/Vol] 1.36 mg/dL High 0.67-1.17 [facility] Comment on above: Performed By: #### C MP, A1C, GFR #### [address] [address] #### B12 #### [address] [address] Electrolyte Balance 11.0 mEq/L Normal 4.0-15.0 [facility] Comment on above: Performed By: #### C MP, A1C, GFR #### [address] [address] #### B12 #### [address] [address] Globulin 3.9 G/dL Normal 2.7-4.4 [facility] Comment on above: Performed By: #### C MP, A1C, GFR #### [address] [address] #### B12 #### [address] [address] Glucose [Mass/Vol] 157 mg/dL High 80-115 [facility] Comment on above: Performed By: #### C MP, A1C, GFR #### [address] [address] #### B12 #### [address] [address] Potassium [Moles/Vol] 4.8 mmol/L Normal 3.5-5.1 [facility] Comment on above: Performed By: #### C MP, A1C, GFR #### [address] [address] #### B12 #### [address] [address] Sodium [Moles/Vol] 139 mmol/L Normal 136-145 [facility] Comment on above: Performed By: #### C MP, A1C, GFR #### [address] [address] #### B12 #### [address] [address] Total Protein 7.6 G/dL Normal 6.4-8.2 [facility] Comment on above: Performed By: #### C MP, A1C, GFR #### [address] [place], [place] [address] #### B12 #### [address] [address] Urea nitrogen [Mass/Vol] 38 mg/dL High 7-18 [facility] Comment on above: Performed By: #### C MP, A1C, GFR #### [address] [place], [place] [address] #### B12 #### [address] [address] LABORATORYOrdered By: SYSTEM SYSTEM on 12-31-2024 Albumin BCP dye [Mass/Vol] 3.7 G/dL Normal 3.4 - 4.8 G/dL AO ADM SS Albumin/Globulin [Mass ratio] 0.9 {ratio} Low 1.1 - 2.5 ratio AO ADM SS ALP [Catalytic activity/Vol] 67 U/L Normal 40 - 135 U/L AO ADM SS ALT With P-5'-P [Catalytic activity/Vol] 32 U/L Normal 16 - 63 U/L AO ADM SS AST With P-5'-P [Catalytic activity/Vol] 17 U/L Normal 10 - 40 U/L AO ADM SS Bilirubin [Mass/Vol] 0.9 mg/dL Normal 0.2 - 1 .0 mg/dL AO ADM SS Comment on above: Interpretive Data: U se of this assay is not recommended for patients undergoing treatment with eltrombopag due to the potential for falsely elevated results. Calcium [Mass/Vol] 10.2 mg/dL Normal 8.4 - 10. 2 mg/dL AO ADM SS Chloride [Moles/Vol] 103 mmol/L Normal 98 - 10 7 mmol/L AO ADM SS CO2 [Moles/Vol] 25 mmol/L Normal 23 - 31 mmol/L AO ADM SS Cobalamin (Vitamin B12) [Mass/Vol] 936 pg/mL High 211 - 911 pg/mL AH ADM SS Creatinine [Mass/Vol] 1.36 mg/dL High 0.67 - 1.17 mg/dL AO ADM SS Electrolyte Balance 11.0 mEq/L Normal 4.0 - 15 .0 mEq/L AO ADM SS Estimated Glomerular Filtration Rate 58 ml/min/1.73sqm Invalid Interpretation Code AO Chemistry S Comment on above: Interpretive Data: Stages of Chronic Kidney Disease (CKD) Stage Description eGFR(ml/min/1.73 sq.m.) CKD 1 Normal kidney function or >=90 normal kindney function with possible kidney damage (ex. Proteinuria) CKD 2 Kidney damage with mild loss 60-89 of kidney function CKD 3a Mild to moderate loss of kidney 45-59 function CKD 3b Moderate to severe loss of 30-44 of kindey function CKD 4 Severe loss of kidney function 15-29 CKD 5 Kidney failure <15 Note: (go live 2024) the eGFR calculation was updated to the 2020 CKD-EPI creatinine equation without a race factor to calculate the eGFR results. Globulin 3.9 G/dL Normal 2.7 - 4.4 G/dL AO ADM SS Glucose [Mass/Vol] 157 mg/dL High 80 - 115 mg/dL AO ADM SS Glucose [Mass/Vol] 163 mg/dL Invalid Interpretation Code AO Chemistry S Comment on above: Interpretive Data: E stimated average glucose (eAG) is a calculated value from Hemoglobin A1C and is parts representative of the average blood glucose level in the last 2-3 month period. Normal range: less than 114 mg/dL HbA1c (Bld) [Mass fraction] 7.3 % High 4.3 - 6.4 % AO ADM SS Potassium [Moles/Vol] 4.8 mmol/L Normal 3.5 - 5.1 mmol/L AO ADM SS Protein [Mass/Vol] 7.6 G/dL Normal 6.4 - 8.2 G/dL AO ADM SS Sodium [Moles/Vol] 139 mmol/L Normal 136 - 145 mmol/L AO ADM SS Urea nitrogen [Mass/Vol] 38 mg/dL High 7 - 18 mg/dL AO ADM SS Urea nitrogen/Creatinine [Mass ratio] 28 ratio High 7 - 27 ratio AO ADM SS .GFRon 09-17-2024 GFR 78 ml/min/1.73sqm Normal [facility] Comment on above: Result Comment: GFR Population mean for , Non- Americans Ages 20-29 = 116 mL/min/1.73 sq.m. Ages 30-39 = 107 mL/min/1.73 sq.m. Ages 40-49 = 99 mL/min/1.73 sq.m. Ages 50-59 = 93 mL/min/1.73 sq.m. Ages 60-69 = 85 mL/min/1.73 sq.m. Ages 70+ = 75 mL/min/1.73 sq.m. Chronic Kidney Disease: Less than 60 mL/min/1.73 square meters End Stage Renal Disease: Less than 15 mL/min/1.73 square meters Performed By: #### A 1C, TSH, LIPID #### [address] [address] GFR Non- 64 ml/min/1.73sqm Normal [facility] Comment on above: Result Comment: GFR Population mean for , Non- Americans Ages 20-29 = 116 mL/min/1.73 sq.m. Ages 30-39 = 107 mL/min/1.73 sq.m. Ages 40-49 = 99 mL/min/1.73 sq.m. Ages 50-59 = 93 mL/min/1.73 sq.m. Ages 60-69 = 85 mL/min/1.73 sq.m. Ages 70+ = 75 mL/min/1.73 sq.m. Chronic Kidney Disease: Less than 60 mL/min/1.73 square meters End Stage Renal Disease: Less than 15 mL/min/1.73 square meters Performed By: #### A 1C, TSH, LIPID #### [address] [address] A1Con 09-17-2024 Glucose [Mass/Vol] 154 mg/dL Normal [facility] Comment on above: Result Comment: Anne mated Average Glucose calculated by equation ((28.7xA1C)-46.7) Estimated average glucose (eAG) is a calculated value from Hemoglobin A1C and is parts representative of the average blood glucose level in the last 2-3 month period. Normal range: less than 114 mg/dL Performed By: #### A 1C, TSH, LIPID #### [id number] [place], [place] [address] HbA1c (Bld) [Mass fraction] 7.0 % High 4.3-6.4 [facility] Comment on above: Performed By: #### A 1C, TSH, LIPID #### [address] [address] CMPon 09-17-2024 Albumin Level 3.7 G/dL Normal 3.4-4.8 [facility] Comment on above: Performed By: #### A 1C, TSH, LIPID #### [address] [address] Albumin/Globulin [Mass ratio] 1.0 {ratio} Low 1.1-2.5 [facility] Comment on above: Performed By: #### A 1C, TSH, LIPID #### [address] [address] ALP [Catalytic activity/Vol] 62 U/L Normal 40-135 [facility] Comment on above: Performed By: #### A 1C, TSH, LIPID #### [address] [address] ALT [Catalytic activity/Vol] 37 U/L Normal 16-63 [facility] Comment on above: Performed By: #### A 1C, TSH, LIPID #### [address] [address] AST [Catalytic activity/Vol] 20 U/L Normal 10-40 [facility] Comment on above: Performed By: #### A 1C, TSH, LIPID #### [address] [address] Bili Total 0.7 mg/dL Normal 0.2-1.0 [facility] Comment on above: Result Comment: Use of this assay is not recommended for patients undergoing treatment with eltrombopag due to the potential for falsely elevated results. Performed By: #### A 1C, TSH, LIPID #### [address] [address] BUN/Creatinine Ratio 30 ratio High 7-27 [facility] Comment on above: Performed By: #### A 1C, TSH, LIPID #### [address] [address] Calcium [Mass/Vol] 9.3 mg/dL Normal 8.4-10.2 [facility] Comment on above: Performed By: #### A 1C, TSH, LIPID #### [address] [address] Chloride [Moles/Vol] 102 mmol/L Normal 98-107 [facility] Comment on above: Performed By: #### A 1C, TSH, LIPID #### [address] [address] CO2 [Moles/Vol] 28 mmol/L Normal 23-31 [facility] Comment on above: Performed By: #### A 1C, TSH, LIPID #### [address] [address] Creatinine [Mass/Vol] 1.15 mg/dL Normal 0.70-1.30 [facility] Comment on above: Result Comment: Test ing performed on Siemens Dimension EXL analyzer using a modified kinetic Jerilyn technique. Performed By: #### A 1C, TSH, LIPID #### [address] [address] Electrolyte Balance 7.0 mEq/L Normal 4.0-15.0 [facility] Comment on above: Performed By: #### A 1C, TSH, LIPID #### [address] [address] Globulin 3.7 G/dL Normal [facility] Comment on above: Performed By: #### A 1C, TSH, LIPID #### [address] [address] Glucose [Mass/Vol] 146 mg/dL High 80-115 [facility] Comment on above: Performed By: #### A 1C, TSH, LIPID #### [address] [address] Potassium [Moles/Vol] 4.4 mmol/L Normal 3.5-5.1 [facility] Comment on above: Performed By: #### A 1C, TSH, LIPID #### [address] [address] Sodium [Moles/Vol] 137 mmol/L Normal 136-145 [facility] Comment on above: Performed By: #### A 1C, TSH, LIPID #### [facility] [address] [place], [place] [address] Total Protein 7.4 G/dL Normal 6.4-8.2 [facility] Comment on above: Performed By: #### A 1C, TSH, LIPID #### [facility] [address] [place], [place] [address] Urea nitrogen [Mass/Vol] 34 mg/dL High 7-18 [facility] Comment on above: Performed By: #### A 1C, TSH, LIPID #### [facility] [address] [place], [place] [address] LABORATORYOrdered By: SYSTEM SYSTEM on 09-17-2024 Albumin BCP dye [Mass/Vol] 3.7 G/dL Normal 3.4 - 4.8 G/dL AO ADM SS Albumin/Globulin [Mass ratio] 1.0 {ratio} Low 1.1 - 2.5 ratio AO ADM SS ALP [Catalytic activity/Vol] 62 U/L Normal 40 - 135 U/L AO ADM SS ALT With P-5'-P [Catalytic activity/Vol] 37 U/L Normal 16 - 63 U/L AO ADM SS AST With P-5'-P [Catalytic activity/Vol] 20 U/L Normal 10 - 40 U/L AO ADM SS Bilirubin [Mass/Vol] 0.7 mg/dL Normal 0.2 - 1 .0 mg/dL AO ADM SS Comment on above: Interpretive Data: U se of this assay is not recommended for patients undergoing treatment with eltrombopag due to the potential for falsely elevated results. Calcium [Mass/Vol] 9.3 mg/dL Normal 8.4 - 10. 2 mg/dL AO ADM SS Chloride [Moles/Vol] 102 mmol/L Normal 98 - 10 7 mmol/L AO ADM SS CO2 [Moles/Vol] 28 mmol/L Normal 23 - 31 mmol/L AO ADM SS Creatinine [Mass/Vol] 1.15 mg/dL Normal 0.70 - 1.30 mg/dL AO ADM SS Comment on above: Interpretive Data: T esting performed on Siemens Dimension EXL analyzer using a modified kinetic Jerilyn technique. Electrolyte Balance 7.0 mEq/L Normal 4.0 - 15 .0 mEq/L AO ADM SS GFR/1.73 sq M.predicted among blacks MDRD (S/P/Bld) [Vol rate/Area] 78 ml/min/1.73sqm Invalid Interpretation Code AO Chemistry S Comment on above: Interpretive Data: GFR Population mean for , Non- Americans Ages 20-29 = 116 mL/min/1.73 sq.m. Ages 30-39 = 107 mL/min/1.73 sq.m. Ages 40-49 = 99 mL/min/1.73 sq.m. Ages 50-59 = 93 mL/min/1.73 sq.m. Ages 60-69 = 85 mL/min/1.73 sq.m. Ages 70+ = 75 mL/min/1.73 sq.m. Chronic Kidney Disease: Less than 60 mL/min/1.73 square meters End Stage Renal Disease: Less than 15 mL/min/1.73 square meters GFR/1.73 sq M.predicted among non-blacks MDRD (S/P/Bld) [Vol rate/Area] 64 ml/min/1.73sqm Invalid Interpretation Code AO Chemistry S Comment on above: Interpretive Data: GFR Population mean for , Non- Americans Ages 20-29 = 116 mL/min/1.73 sq.m. Ages 30-39 = 107 mL/min/1.73 sq.m. Ages 40-49 = 99 mL/min/1.73 sq.m. Ages 50-59 = 93 mL/min/1.73 sq.m. Ages 60-69 = 85 mL/min/1.73 sq.m. Ages 70+ = 75 mL/min/1.73 sq.m. Chronic Kidney Disease: Less than 60 mL/min/1.73 square meters End Stage Renal Disease: Less than 15 mL/min/1.73 square meters Globulin 3.7 G/dL Invalid Interpretation Code AO ADM SS Glucose [Mass/Vol] 146 mg/dL High 80 - 115 mg/dL AO ADM SS Glucose [Mass/Vol] 154 mg/dL Invalid Interpretation Code AO Chemistry S Comment on above: Interpretive Data: E stimated average glucose (eAG) is a calculated value from Hemoglobin A1C and is parts representative of the average blood glucose level in the last 2-3 month period. Normal range: less than 114 mg/dL HbA1c (Bld) [Mass fraction] 7.0 % High 4.3 - 6.4 % AO ADM SS Potassium [Moles/Vol] 4.4 mmol/L Normal 3.5 - 5.1 mmol/L AO ADM SS Protein [Mass/Vol] 7.4 G/dL Normal 6.4 - 8.2 G/dL AO ADM SS Sodium [Moles/Vol] 137 mmol/L Normal 136 - 145 mmol/L AO ADM SS Urea nitrogen [Mass/Vol] 34 mg/dL High 7 - 18 mg/dL AO ADM SS Urea nitrogen/Creatinine [Mass ratio] 30 ratio High 7 - 27 ratio AO ADM SS LABORATORYOrdered By: Lulu Chapman on 09-17-2024 Cholesterol [Mass/Vol] 161 mg/dL Normal 0 - 200 mg/dL AO ADM SS Comment on above: Interpretive Data: C holesterol Reference Interval: Less than 200 Desirable 200-239 Borderline high risk 240 and above High risk Cholesterol in HDL [Mass/Vol] 58 mg/dL Normal 40 - 60 mg/dL AO ADM SS Cholesterol in LDL [Mass/Vol] 83 mg/dL Normal 0 - 130 mg/dL AO ADM SS Triglyceride [Mass/Vol] 98 mg/dL Normal 0 - 150 mg/dL AO ADM SS Comment on above: Interpretive Data: T riglyceride Reference Interval: Less than 150 Normal 150-199 Borderline high risk 200-499 High risk 500 or higher Very high risk LIPIDon 09-17-2024 Cholesterol [Mass/Vol] 161 mg/dL Normal 0-200 [facility] Comment on above: Result Comment: Chol esterol Reference Interval: Less than 200 Desirable 200-239 Borderline high risk 240 and above High risk Performed By: #### A 1C, TSH, LIPID #### [address] [address] Cholesterol in HDL [Mass/Vol] 58 mg/dL Normal 40-60 [facility] Comment on above: Performed By: #### A 1C, TSH, LIPID #### [address] [address] Cholesterol in LDL [Mass/Vol] 83 mg/dL Normal 0-130 [facility] Comment on above: Performed By: #### A 1C, TSH, LIPID #### [id number] [place], [place] [address] Triglyceride [Mass/Vol] 98 mg/dL Normal 0-150 [facility] Comment on above: Result Comment: Trig lyceride Reference Interval: Less than 150 Normal 150-199 Borderline high risk 200-499 High risk 500 or higher Very high risk Performed By: #### A 1C, TSH, LIPID #### [address] [address] .GFRon 06-25-2024 GFR 72 ml/min/1.73sqm Normal [facility] Comment on above: Result Comment: GFR Population mean for , Non- Americans Ages 20-29 = 116 mL/min/1.73 sq.m. Ages 30-39 = 107 mL/min/1.73 sq.m. Ages 40-49 = 99 mL/min/1.73 sq.m. Ages 50-59 = 93 mL/min/1.73 sq.m. Ages 60-69 = 85 mL/min/1.73 sq.m. Ages 70+ = 75 mL/min/1.73 sq.m. Chronic Kidney Disease: Less than 60 mL/min/1.73 square meters End Stage Renal Disease: Less than 15 mL/min/1.73 square meters Performed By: #### A 1C, TSH, LIPID #### [address] [address] GFR Non- 59 ml/min/1.73sqm Normal [facility] Comment on above: Result Comment: GFR Population mean for , Non- Americans Ages 20-29 = 116 mL/min/1.73 sq.m. Ages 30-39 = 107 mL/min/1.73 sq.m. Ages 40-49 = 99 mL/min/1.73 sq.m. Ages 50-59 = 93 mL/min/1.73 sq.m. Ages 60-69 = 85 mL/min/1.73 sq.m. Ages 70+ = 75 mL/min/1.73 sq.m. Chronic Kidney Disease: Less than 60 mL/min/1.73 square meters End Stage Renal Disease: Less than 15 mL/min/1.73 square meters Performed By: #### A Beverly TSH, LIPID #### [address] [address] A1Con 06-25-2024 Glucose [Mass/Vol] 174 mg/dL Normal [facility] Comment on above: Result Comment: Anne mated Average Glucose calculated by equation ((28.7xA1C)-46.7) Estimated average glucose (eAG) is a calculated value from Hemoglobin A1C and is parts representative of the average blood glucose level in the last 2-3 month period. Normal range: less than 114 mg/dL Performed By: #### A Beverly TSH, LIPID #### [address] [address] HbA1c (Bld) [Mass fraction] 7.7 % High 4.3-6.4 [facility] Comment on above: Performed By: #### A Beverly TSH, LIPID #### [address] [address] CMPon 06-25-2024 Albumin Level 3.6 G/dL Normal 3.4-4.8 [facility] Comment on above: Performed By: #### A Beverly TSH, LIPID #### [address] [address] Albumin/Globulin [Mass ratio] 1.1 {ratio} Normal 1.1-2.5 [facility] Comment on above: Performed By: #### A 1C TSH, LIPID #### [address] [address] ALP [Catalytic activity/Vol] 70 U/L Normal 40-135 [facility] Comment on above: Performed By: #### A 1C, TSH, LIPID #### [address] [address] ALT [Catalytic activity/Vol] 46 U/L Normal 16-63 [facility] Comment on above: Performed By: #### A 1C, TSH, LIPID #### [address] [address] AST [Catalytic activity/Vol] 20 U/L Normal 10-40 [facility] Comment on above: Performed By: #### A 1C, TSH, LIPID #### [place] [address] Bili Total 0.6 mg/dL Normal 0.2-1.0 [facility] Comment on above: Result Comment: Use of this assay is not recommended for patients undergoing treatment with eltrombopag due to the potential for falsely elevated results. Performed By: #### A 1C, TSH, LIPID #### [place] [address] BUN/Creatinine Ratio 18 ratio Normal 7-27 [facility] Comment on above: Performed By: #### A 1C, TSH, LIPID #### [place] [address] Calcium [Mass/Vol] 9.5 mg/dL Normal 8.4-10.2 [facility] Comment on above: Performed By: #### A 1C, TSH, LIPID #### [place] [address] Chloride [Moles/Vol] 104 mmol/L Normal 98-107 [facility] Comment on above: Performed By: #### A 1C, TSH, LIPID #### [place] [address] CO2 [Moles/Vol] 27 mmol/L Normal 23-31 [facility] Comment on above: Performed By: #### A 1C, TSH, LIPID #### [place] [address] Creatinine [Mass/Vol] 1.23 mg/dL Normal 0.70-1.30 [facility] Comment on above: Result Comment: Test ing performed on Siemens Dimension EXL analyzer using a modified kinetic Jerilyn technique. Performed By: #### A 1C, TSH, LIPID #### [place] [address] Electrolyte Balance 9.0 mEq/L Normal 4.0-15.0 [facility] Comment on above: Performed By: #### A 1C, TSH, LIPID #### [address] [address] Globulin 3.2 G/dL Normal [facility] Comment on above: Performed By: #### A 1C, TSH, LIPID #### [address] [address] Glucose [Mass/Vol] 157 mg/dL High 80-115 [facility] Comment on above: Performed By: #### A 1C, TSH, LIPID #### [address] [address] Potassium [Moles/Vol] 4.4 mmol/L Normal 3.5-5.1 [facility] Comment on above: Performed By: #### A 1C, TSH, LIPID #### [address] [address] Sodium [Moles/Vol] 140 mmol/L Normal 136-145 [facility] Comment on above: Performed By: #### A 1C, TSH, LIPID #### [address] [address] Total Protein 6.8 G/dL Normal 6.4-8.2 [facility] Comment on above: Performed By: #### A 1C, TSH, LIPID #### [address] [address] Urea nitrogen [Mass/Vol] 22 mg/dL High 7-18 [facility] Comment on above: Performed By: #### A 1C, TSH, LIPID #### [address] [address] LABORATORYOrdered By: SYSTEM SYSTEM on 06-25-2024 25-hydroxyvitamin D3 [Mass/Vol] 46.9 ng/mL Invalid Interpretation Code AO ADM SS Comment on above: Interpretive Data: I nterpretive Values Based on Total 25(OH) Vitamin D: Deficient <20 ng/mL Insufficient 20 - <30 ng/mL Sufficient 30-100 ng/mL Albumin BCP dye [Mass/Vol] 3.6 G/dL Normal 3.4 - 4.8 G/dL AO ADM SS Albumin/Globulin [Mass ratio] 1.1 {ratio} Normal 1.1 - 2.5 ratio AO ADM SS ALP [Catalytic activity/Vol] 70 U/L Normal 40 - 135 U/L AO ADM SS ALT With P-5'-P [Catalytic activity/Vol] 46 U/L Normal 16 - 63 U/L AO ADM SS AST With P-5'-P [Catalytic activity/Vol] 20 U/L Normal 10 - 40 U/L AO ADM SS Bilirubin [Mass/Vol] 0.6 mg/dL Normal 0.2 - 1 .0 mg/dL AO ADM SS Comment on above: Interpretive Data: U se of this assay is not recommended for patients undergoing treatment with eltrombopag due to the potential for falsely elevated results. Calcium [Mass/Vol] 9.5 mg/dL Normal 8.4 - 10. 2 mg/dL AO ADM SS Chloride [Moles/Vol] 104 mmol/L Normal 98 - 10 7 mmol/L AO ADM SS CO2 [Moles/Vol] 27 mmol/L Normal 23 - 31 mmol/L AO ADM SS Creatinine [Mass/Vol] 1.23 mg/dL Normal 0.70 - 1.30 mg/dL AO ADM SS Comment on above: Interpretive Data: T esting performed on Siemens Dimension EXL analyzer using a modified kinetic Jerilyn technique. Electrolyte Balance 9.0 mEq/L Normal 4.0 - 15 .0 mEq/L AO ADM SS GFR/1.73 sq M.predicted among blacks MDRD (S/P/Bld) [Vol rate/Area] 72 ml/min/1.73sqm Invalid Interpretation Code AO Chemistry S Comment on above: Interpretive Data: GFR Population mean for , Non- Americans Ages 20-29 = 116 mL/min/1.73 sq.m. Ages 30-39 = 107 mL/min/1.73 sq.m. Ages 40-49 = 99 mL/min/1.73 sq.m. Ages 50-59 = 93 mL/min/1.73 sq.m. Ages 60-69 = 85 mL/min/1.73 sq.m. Ages 70+ = 75 mL/min/1.73 sq.m. Chronic Kidney Disease: Less than 60 mL/min/1.73 square meters End Stage Renal Disease: Less than 15 mL/min/1.73 square meters GFR/1.73 sq M.predicted among non-blacks MDRD (S/P/Bld) [Vol rate/Area] 59 ml/min/1.73sqm Invalid Interpretation Code AO Chemistry S Comment on above: Interpretive Data: GFR Population mean for , Non- Americans Ages 20-29 = 116 mL/min/1.73 sq.m. Ages 30-39 = 107 mL/min/1.73 sq.m. Ages 40-49 = 99 mL/min/1.73 sq.m. Ages 50-59 = 93 mL/min/1.73 sq.m. Ages 60-69 = 85 mL/min/1.73 sq.m. Ages 70+ = 75 mL/min/1.73 sq.m. Chronic Kidney Disease: Less than 60 mL/min/1.73 square meters End Stage Renal Disease: Less than 15 mL/min/1.73 square meters Globulin 3.2 G/dL Invalid Interpretation Code AO ADM SS Glucose [Mass/Vol] 157 mg/dL High 80 - 115 mg/dL AO ADM SS Glucose [Mass/Vol] 174 mg/dL Invalid Interpretation Code AO Chemistry S Comment on above: Interpretive Data: E stimated average glucose (eAG) is a calculated value from Hemoglobin A1C and is parts representative of the average blood glucose level in the last 2-3 month period. Normal range: less than 114 mg/dL HbA1c (Bld) [Mass fraction] 7.7 % High 4.3 - 6.4 % AO ADM SS Potassium [Moles/Vol] 4.4 mmol/L Normal 3.5 - 5.1 mmol/L AO ADM SS Protein [Mass/Vol] 6.8 G/dL Normal 6.4 - 8.2 G/dL AO ADM SS Sodium [Moles/Vol] 140 mmol/L Normal 136 - 145 mmol/L AO ADM SS TSH Qn 1.19 m[IU]/L Normal 0.36 - 3.74 mcIU/mL AO ADM SS Urea nitrogen [Mass/Vol] 22 mg/dL High 7 - 18 mg/dL AO ADM SS Urea nitrogen/Creatinine [Mass ratio] 18 ratio Normal 7 - 27 ratio AO ADM SS LABORATORYOrdered By: Laura Dominguez on 06-25-2024 Cholesterol [Mass/Vol] 195 mg/dL Normal 0 - 200 mg/dL AO ADM SS Comment on above: Interpretive Data: C holesterol Reference Interval: Less than 200 Desirable 200-239 Borderline high risk 240 and above High risk Cholesterol in HDL [Mass/Vol] 59 mg/dL Normal 40 - 60 mg/dL AO ADM SS Cholesterol in LDL [Mass/Vol] 111 mg/dL Normal 0 - 130 mg/dL AO ADM SS Triglyceride [Mass/Vol] 123 mg/dL Normal 0 - 150 mg/dL AO ADM SS Comment on above: Interpretive Data: T riglyceride Reference Interval: Less than 150 Normal 150-199 Borderline high risk 200-499 High risk 500 or higher Very high risk LIPIDon 06-25-2024 Cholesterol [Mass/Vol] 195 mg/dL Normal 0-200 [facility] Comment on above: Result Comment: Chol esterol Reference Interval: Less than 200 Desirable 200-239 Borderline high risk 240 and above High risk Performed By: #### A 1C, TSH, LIPID #### [address] [address] Cholesterol in HDL [Mass/Vol] 59 mg/dL Normal 40-60 [facility] Comment on above: Performed By: #### A 1C, TSH, LIPID #### [address] [address] Cholesterol in LDL [Mass/Vol] 111 mg/dL Normal 0-130 [facility] Comment on above: Performed By: #### A 1C, TSH, LIPID #### [address] [address] Triglyceride [Mass/Vol] 123 mg/dL Normal 0-150 [facility] Comment on above: Result Comment: Trig lyceride Reference Interval: Less than 150 Normal 150-199 Borderline high risk 200-499 High risk 500 or higher Very high risk Performed By: #### A 1C, TSH, LIPID #### [address] [address] TSHon 06-25-2024 TSH Qn 1.19 m[IU]/L Normal 0.36-3.74 [facility] Comment on above: Performed By: #### A 1C, TSH, LIPID #### [address] [address] VIDHon 06-25-2024 Vit. D 25-Hydroxy 46.9 ng/mL Normal [facility] Comment on above: Result Comment: Inte rpretive Values Based on Total 25(OH) Vitamin D: Deficient <20 ng/mL Insufficient 20 - <30 ng/mL Sufficient 30-100 ng/mL Performed By: #### A 1C, TSH, LIPID #### [address] [address] LABORATORYOrdered By: SYSTEM SYSTEM on 06-20-2024 Prostate specific Ag [Mass/Vol] 0.84 ng/mL Normal 0.00 - 4.00 ng/mL AO ADM SS PSAon 06-20-2024 Prostate Specific Antigen 0.84 ng/mL Normal 0.00-4.00 [facility] Comment on above: Performed By: #### P SA #### [address] [address] .GFRon 03-18-2024 GFR 68 ml/min/1.73sqm Normal [facility] ([place]) Comment on above: Result Comment: GFR Population mean for , Non- Americans Ages 20-29 = 116 mL/min/1.73 sq.m. Ages 30-39 = 107 mL/min/1.73 sq.m. Ages 40-49 = 99 mL/min/1.73 sq.m. Ages 50-59 = 93 mL/min/1.73 sq.m. Ages 60-69 = 85 mL/min/1.73 sq.m. Ages 70+ = 75 mL/min/1.73 sq.m. Chronic Kidney Disease: Less than 60 mL/min/1.73 square meters End Stage Renal Disease: Less than 15 mL/min/1.73 square meters Performed By: #### L IPID, A1C, GFR, CMP #### [address] [address] GFR Non- 56 ml/min/1.73sqm Normal [facility] ([place]) Comment on above: Result Comment: GFR Population mean for , Non- Americans Ages 20-29 = 116 mL/min/1.73 sq.m. Ages 30-39 = 107 mL/min/1.73 sq.m. Ages 40-49 = 99 mL/min/1.73 sq.m. Ages 50-59 = 93 mL/min/1.73 sq.m. Ages 60-69 = 85 mL/min/1.73 sq.m. Ages 70+ = 75 mL/min/1.73 sq.m. Chronic Kidney Disease: Less than 60 mL/min/1.73 square meters End Stage Renal Disease: Less than 15 mL/min/1.73 square meters Performed By: #### L IPID, A1C, GFR, CMP #### [address] [address] BMPon 03-18-2024 BUN/Creatinine Ratio 20 ratio Normal 7-27 [facility] ([place]) Comment on above: Performed By: #### L IPID, A1C, GFR, CMP #### [address] [address] BMPOrdered By: SYSTEM SYSTEM on 03-18-2024 Calcium [Mass/Vol] 9.9 mg/dL Normal 8.4-10.2 AO ADM SS Comment on above: Performed By: #### L IPID, A1C, GFR, CMP #### [address] [address] Chloride [Moles/Vol] 107 mmol/L Normal 98-107 AO A DM SS Comment on above: Performed By: #### L IPID, A1C, GFR, CMP #### [address] [address] CO2 [Moles/Vol] 27 mmol/L Normal 23-31 AO ADM SS Comment on above: Performed By: #### L IPID, A1C, GFR, CMP #### [address] [address] Creatinine [Mass/Vol] 1.29 mg/dL Normal 0.70-1.30 AO ADM SS Comment on above: Performed By: #### L IPID, A1C, GFR, CMP #### [address] [address] Electrolyte Balance 11.0 mEq/L Normal 4.0-15.0 AO AD M SS Comment on above: Performed By: #### L IPID, A1C, GFR, CMP #### Angela [address] [address] Glucose [Mass/Vol] 116 mg/dL High 80-115 AO ADM SS Comment on above: Performed By: #### L IPID, A1C, GFR, CMP #### [address] [address] Potassium [Moles/Vol] 4.7 mmol/L Normal 3.5-5.1 AO ADM SS Comment on above: Performed By: #### L IPID, A1C, GFR, CMP #### [address] [address] Sodium [Moles/Vol] 145 mmol/L Normal 136-145 AO ADM SS Comment on above: Performed By: #### L IPID, A1C, GFR, CMP #### [address] [address] Urea nitrogen [Mass/Vol] 26 mg/dL High 7-18 AO ADM SS Comment on above: Performed By: #### L IPID, A1C, GFR, CMP #### [address] [address] LABORATORYOrdered By: Laura Dominguez on 03-18-2024 Albumin DL <= 20 mg/L (U) [Mass/Vol] 1225 mcg/dL Invalid Interpretation Code AO ADM SS Albumin/Creatinine DL <= 20 mg/L (U) [Mass ratio] 10 mcg/mg Normal 0 - 30 mcg/mg AO ADM SS Creatinine (U) [Mass/Vol] 126.0 mg/dL Normal 39.0 - 259.0 mg/dL AO ADM SS LABORATORYOrdered By: SYSTEM SYSTEM on 03-18-2024 GFR/1.73 sq M.predicted among blacks MDRD (S/P/Bld) [Vol rate/Area] 68 ml/min/1.73sqm Invalid Interpretation Code AO Chemistry S Comment on above: Interpretive Data: GFR Population mean for , Non- Americans Ages 20-29 = 116 mL/min/1.73 sq.m. Ages 30-39 = 107 mL/min/1.73 sq.m. Ages 40-49 = 99 mL/min/1.73 sq.m. Ages 50-59 = 93 mL/min/1.73 sq.m. Ages 60-69 = 85 mL/min/1.73 sq.m. Ages 70+ = 75 mL/min/1.73 sq.m. Chronic Kidney Disease: Less than 60 mL/min/1.73 square meters End Stage Renal Disease: Less than 15 mL/min/1.73 square meters GFR/1.73 sq M.predicted among non-blacks MDRD (S/P/Bld) [Vol rate/Area] 56 ml/min/1.73sqm Invalid Interpretation Code AO Chemistry S Comment on above: Interpretive Data: GFR Population mean for , Non- Americans Ages 20-29 = 116 mL/min/1.73 sq.m. Ages 30-39 = 107 mL/min/1.73 sq.m. Ages 40-49 = 99 mL/min/1.73 sq.m. Ages 50-59 = 93 mL/min/1.73 sq.m. Ages 60-69 = 85 mL/min/1.73 sq.m. Ages 70+ = 75 mL/min/1.73 sq.m. Chronic Kidney Disease: Less than 60 mL/min/1.73 square meters End Stage Renal Disease: Less than 15 mL/min/1.73 square meters Urea nitrogen/Creatinine [Mass ratio] 20 ratio Normal 7 - 27 ratio AO ADM SS MALBRon 03-18-2024 U Creatinine 126.0 mg/dL Normal 39.0-259.0 [facility] ([place]) Comment on above: Performed By: #### L IPID, A1C, GFR, CMP #### [address] [address] U Microalb 1225 mcg/dL Normal [facility] ([place]) Comment on above: Performed By: #### L IPID, A1C, GFR, CMP #### [place] [id number] [place], [place] [address] U Ratio Alb/Cre 10 mcg/mg Normal 0-30 [facility] ([place]) Comment on above: Performed By: #### L IPID, A1C, GFR, CMP #### [address] [address] .GFRon 03-05-2024 GFR Non- 53 ml/min/1.73sqm Normal [facility] ([place]) Comment on above: Result Comment: GFR Population mean for , Non- Americans Ages 20-29 = 116 mL/min/1.73 sq.m. Ages 30-39 = 107 mL/min/1.73 sq.m. Ages 40-49 = 99 mL/min/1.73 sq.m. Ages 50-59 = 93 mL/min/1.73 sq.m. Ages 60-69 = 85 mL/min/1.73 sq.m. Ages 70+ = 75 mL/min/1.73 sq.m. Chronic Kidney Disease: Less than 60 mL/min/1.73 square meters End Stage Renal Disease: Less than 15 mL/min/1.73 square meters Performed By: #### L IPID, A1C, GFR, CMP #### [address] [address] GFR 64 ml/min/1.73sqm Normal [facility] ([place]) Comment on above: Result Comment: GFR Population mean for , Non- Americans Ages 20-29 = 116 mL/min/1.73 sq.m. Ages 30-39 = 107 mL/min/1.73 sq.m. Ages 40-49 = 99 mL/min/1.73 sq.m. Ages 50-59 = 93 mL/min/1.73 sq.m. Ages 60-69 = 85 mL/min/1.73 sq.m. Ages 70+ = 75 mL/min/1.73 sq.m. Chronic Kidney Disease: Less than 60 mL/min/1.73 square meters End Stage Renal Disease: Less than 15 mL/min/1.73 square meters Performed By: #### L IPID, A1C, GFR, CMP #### [address] [address] A1Con 03-05-2024 HbA1c (Bld) [Mass fraction] 6.4 % Normal 4.3-6.4 [facility] ([place]) Comment on above: Performed By: #### L IPID, A1C, GFR, CMP #### [address] [address] CMPon 03-05-2024 Albumin Level 3.7 G/dL Normal 3.4-4.8 [facility] ([place]) Comment on above: Performed By: #### L IPID, A1C, GFR, CMP #### [address] [address] Albumin/Globulin [Mass ratio] 1.1 {ratio} Normal 1.1-2.5 [facility] ([place]) Comment on above: Performed By: #### L IPID, A1C, GFR, CMP #### [address] [address] ALP [Catalytic activity/Vol] 67 U/L Normal 40-135 [facility] ([place]) Comment on above: Performed By: #### L IPID, A1C, GFR, CMP #### [address] [address] ALT [Catalytic activity/Vol] 37 U/L Normal 16-63 [facility] ([place]) Comment on above: Performed By: #### L IPID, A1C, GFR, CMP #### [address] [address] AST [Catalytic activity/Vol] 17 U/L Normal 10-40 [facility] ([place]) Comment on above: Performed By: #### L IPID, A1C, GFR, CMP #### [address] [address] Bili Total 0.6 mg/dL Normal 0.2-1.0 [facility] ([place]) Comment on above: Result Comment: Use of this assay is not recommended for patients undergoing treatment with eltrombopag due to the potential for falsely elevated results. Performed By: #### L IPID, A1C, GFR, CMP #### [address] [address] BUN/Creatinine Ratio 21 ratio Normal 7-27 [facility] ([place]) Comment on above: Performed By: #### L IPID, A1C, GFR, CMP #### [address] [address] Calcium [Mass/Vol] 9.7 mg/dL Normal 8.4-10.2 [facility] ([place]) Comment on above: Performed By: #### L IPID, A1C, GFR, CMP #### [address] [address] Chloride [Moles/Vol] 101 mmol/L Normal 98-107 [facility] ([place]) Comment on above: Performed By: #### L IPID, A1C, GFR, CMP #### [address] [address] CO2 [Moles/Vol] 30 mmol/L Normal 23-31 [facility] ([place]) Comment on above: Performed By: #### L IPID, A1C, GFR, CMP #### [address] [address] Creatinine [Mass/Vol] 1.36 mg/dL High 0.70-1.30 [facility] ([place]) Comment on above: Performed By: #### L IPID, A1C, GFR, CMP #### [address] [address] Electrolyte Balance 3.0 mEq/L Low 4.0-15.0 [facility] ([place]) Comment on above: Performed By: #### L IPID, A1C, GFR, CMP #### [address] [address] Globulin 3.5 G/dL Normal [facility] ([place]) Comment on above: Performed By: #### L IPID, A1C, GFR, CMP #### [address] [address] Glucose [Mass/Vol] 147 mg/dL High 80-115 [facility] ([place]) Comment on above: Performed By: #### L IPID, A1C, GFR, CMP #### [address] [address] Potassium [Moles/Vol] 4.9 mmol/L Normal 3.5-5.1 [facility] ([place]) Comment on above: Performed By: #### L IPID, A1C, GFR, CMP #### [place] [address] [place], [place] [address] Sodium [Moles/Vol] 134 mmol/L Low 136-145 [facility] ([place]) Comment on above: Performed By: #### L IPID, A1C, GFR, CMP #### [place] [address] [place], [place] [address] Total Protein 7.2 G/dL Normal 6.4-8.2 [facility] ([place]) Comment on above: Performed By: #### L IPID, A1C, GFR, CMP #### [place] [address] [place], [place] [address] Urea nitrogen [Mass/Vol] 29 mg/dL High 7-18 [facility] ([place]) Comment on above: Performed By: #### L IPID, A1C, GFR, CMP #### [place] [address] [place], [place] [address] LABORATORYOrdered By: SYSTEM SYSTEM on 03-05-2024 Albumin BCP dye [Mass/Vol] 3.7 G/dL Normal 3.4 - 4.8 G/dL AO ADM SS Albumin/Globulin [Mass ratio] 1.1 {ratio} Normal 1.1 - 2.5 ratio AO ADM SS ALP [Catalytic activity/Vol] 67 U/L Normal 40 - 135 U/L AO ADM SS ALT With P-5'-P [Catalytic activity/Vol] 37 U/L Normal 16 - 63 U/L AO ADM SS AST With P-5'-P [Catalytic activity/Vol] 17 U/L Normal 10 - 40 U/L AO ADM SS Bilirubin [Mass/Vol] 0.6 mg/dL Normal 0.2 - 1 .0 mg/dL AO ADM SS Comment on above: Interpretive Data: U se of this assay is not recommended for patients undergoing treatment with eltrombopag due to the potential for falsely elevated results. Calcium [Mass/Vol] 9.7 mg/dL Normal 8.4 - 10. 2 mg/dL AO ADM SS Chloride [Moles/Vol] 101 mmol/L Normal 98 - 10 7 mmol/L AO ADM SS CO2 [Moles/Vol] 30 mmol/L Normal 23 - 31 mmol/L AO ADM SS Creatinine [Mass/Vol] 1.36 mg/dL High 0.70 - 1.30 mg/dL AO ADM SS Electrolyte Balance 3.0 mEq/L Low 4.0 - 15 .0 mEq/L AO ADM SS GFR/1.73 sq M.predicted among blacks MDRD (S/P/Bld) [Vol rate/Area] 64 ml/min/1.73sqm Invalid Interpretation Code AO Chemistry S Comment on above: Interpretive Data: GFR Population mean for , Non- Americans Ages 20-29 = 116 mL/min/1.73 sq.m. Ages 30-39 = 107 mL/min/1.73 sq.m. Ages 40-49 = 99 mL/min/1.73 sq.m. Ages 50-59 = 93 mL/min/1.73 sq.m. Ages 60-69 = 85 mL/min/1.73 sq.m. Ages 70+ = 75 mL/min/1.73 sq.m. Chronic Kidney Disease: Less than 60 mL/min/1.73 square meters End Stage Renal Disease: Less than 15 mL/min/1.73 square meters GFR/1.73 sq M.predicted among non-blacks MDRD (S/P/Bld) [Vol rate/Area] 53 ml/min/1.73sqm Invalid Interpretation Code AO Chemistry S Comment on above: Interpretive Data: GFR Population mean for , Non- Americans Ages 20-29 = 116 mL/min/1.73 sq.m. Ages 30-39 = 107 mL/min/1.73 sq.m. Ages 40-49 = 99 mL/min/1.73 sq.m. Ages 50-59 = 93 mL/min/1.73 sq.m. Ages 60-69 = 85 mL/min/1.73 sq.m. Ages 70+ = 75 mL/min/1.73 sq.m. Chronic Kidney Disease: Less than 60 mL/min/1.73 square meters End Stage Renal Disease: Less than 15 mL/min/1.73 square meters Globulin 3.5 G/dL Invalid Interpretation Code AO ADM SS Glucose [Mass/Vol] 147 mg/dL High 80 - 115 mg/dL AO ADM SS HbA1c (Bld) [Mass fraction] 6.4 % Normal 4.3 - 6.4 % AO ADM SS Potassium [Moles/Vol] 4.9 mmol/L Normal 3.5 - 5.1 mmol/L AO ADM SS Protein [Mass/Vol] 7.2 G/dL Normal 6.4 - 8.2 G/dL AO ADM SS Sodium [Moles/Vol] 134 mmol/L Low 136 - 145 mmol/L AO ADM SS Urea nitrogen [Mass/Vol] 29 mg/dL High 7 - 18 mg/dL AO ADM SS Urea nitrogen/Creatinine [Mass ratio] 21 ratio Normal 7 - 27 ratio AO ADM SS LABORATORYOrdered By: Smitha Rodriguez on 03-05-2024 Cholesterol [Mass/Vol] 181 mg/dL Normal 0 - 200 mg/dL AO ADM SS Comment on above: Interpretive Data: C holesterol Reference Interval: Less than 200 Desirable 200-239 Borderline high risk 240 and above High risk Cholesterol in HDL [Mass/Vol] 56 mg/dL Normal 40 - 60 mg/dL AO ADM SS Cholesterol in LDL [Mass/Vol] 105 mg/dL Normal 0 - 130 mg/dL AO ADM SS Triglyceride [Mass/Vol] 101 mg/dL Normal 0 - 150 mg/dL AO ADM SS Comment on above: Interpretive Data: T riglyceride Reference Interval: Less than 150 Normal 150-199 Borderline high risk 200-499 High risk 500 or higher Very high risk LIPIDon 03-05-2024 Cholesterol [Mass/Vol] 181 mg/dL Normal 0-200 [facility] ([place]) Comment on above: Result Comment: Chol esterol Reference Interval: Less than 200 Desirable 200-239 Borderline high risk 240 and above High risk Performed By: #### L IPID, A1C, GFR, CMP #### [address] [address] Cholesterol in HDL [Mass/Vol] 56 mg/dL Normal 40-60 [facility] ([place]) Comment on above: Performed By: #### L IPID, A1C, GFR, CMP #### [address] [address] Cholesterol in LDL [Mass/Vol] 105 mg/dL Normal 0-130 [facility] ([place]) Comment on above: Performed By: #### L IPID, A1C, GFR, CMP #### [address] [address] Triglyceride [Mass/Vol] 101 mg/dL Normal 0-150 [facility] ([place]) Comment on above: Result Comment: Trig lyceride Reference Interval: Less than 150 Normal 150-199 Borderline high risk 200-499 High risk 500 or higher Very high risk Performed By: #### L IPID, A1C, GFR, CMP #### [address] [address] [place], [place] [address] .GFRon 12-05-2023 GFR Non- 67 ml/min/1.73sqm Normal [facility] ([place]) Comment on above: Result Comment: GFR Population mean for , Non- Americans Ages 20-29 = 116 mL/min/1.73 sq.m. Ages 30-39 = 107 mL/min/1.73 sq.m. Ages 40-49 = 99 mL/min/1.73 sq.m. Ages 50-59 = 93 mL/min/1.73 sq.m. Ages 60-69 = 85 mL/min/1.73 sq.m. Ages 70+ = 75 mL/min/1.73 sq.m. Chronic Kidney Disease: Less than 60 mL/min/1.73 square meters End Stage Renal Disease: Less than 15 mL/min/1.73 square meters Performed By: #### L IPID, A1C, GFR, CMP #### [id number] [place], [place] [address] GFR 82 ml/min/1.73sqm Normal [facility] ([place]) Comment on above: Result Comment: GFR Population mean for , Non- Americans Ages 20-29 = 116 mL/min/1.73 sq.m. Ages 30-39 = 107 mL/min/1.73 sq.m. Ages 40-49 = 99 mL/min/1.73 sq.m. Ages 50-59 = 93 mL/min/1.73 sq.m. Ages 60-69 = 85 mL/min/1.73 sq.m. Ages 70+ = 75 mL/min/1.73 sq.m. Chronic Kidney Disease: Less than 60 mL/min/1.73 square meters End Stage Renal Disease: Less than 15 mL/min/1.73 square meters Performed By: #### L IPID, A1C, GFR, CMP #### [address] [address] A1Con 12-05-2023 HbA1c (Bld) [Mass fraction] 7.0 % High 4.3-6.4 [facility] ([place]) Comment on above: Performed By: #### L IPID, A1C, GFR, CMP #### [address] [address] CMPon 12-05-2023 Albumin Level 3.8 G/dL Normal 3.4-4.8 [facility] ([place]) Comment on above: Performed By: #### L IPID, A1C, GFR, CMP #### [address] [address] Albumin/Globulin [Mass ratio] 1.2 {ratio} Normal 1.1-2.5 [facility] ([place]) Comment on above: Performed By: #### L IPID, A1C, GFR, CMP #### [address] [address] ALP [Catalytic activity/Vol] 64 U/L Normal 40-135 [facility] ([place]) Comment on above: Performed By: #### L IPID, A1C, GFR, CMP #### [address] [address] ALT [Catalytic activity/Vol] 39 U/L Normal 16-63 [facility] ([place]) Comment on above: Performed By: #### L IPID, A1C, GFR, CMP #### [address] [address] AST [Catalytic activity/Vol] 21 U/L Normal 10-40 [facility] ([place]) Comment on above: Performed By: #### L IPID, A1C, GFR, CMP #### [address] [address] Bili Total 0.5 mg/dL Normal 0.2-1.0 [facility] ([place]) Comment on above: Result Comment: Use of this assay is not recommended for patients undergoing treatment with eltrombopag due to the potential for falsely elevated results. Performed By: #### L IPID, A1C, GFR, CMP #### [place] [id number] BUN/Creatinine Ratio 26 ratio Normal 7-27 [facility] ([place]) Comment on above: Performed By: #### L IPID, A1C, GFR, CMP #### [place] [id number] Calcium [Mass/Vol] 9.0 mg/dL Normal 8.4-10.2 [facility] ([place]) Comment on above: Performed By: #### L IPID, A1C, GFR, CMP #### [place] [address] Chloride [Moles/Vol] 103 mmol/L Normal 98-107 [facility] ([place]) Comment on above: Performed By: #### L IPID, A1C, GFR, CMP #### [place] [id number] CO2 [Moles/Vol] 25 mmol/L Normal 23-31 [facility] ([place]) Comment on above: Performed By: #### L IPID, A1C, GFR, CMP #### [place] [id number] Creatinine [Mass/Vol] 1.10 mg/dL Normal 0.70-1.30 [facility] ([place]) Comment on above: Performed By: #### L IPID, A1C, GFR, CMP #### [address] [address] Electrolyte Balance 11.0 mEq/L Normal 4.0-15.0 [facility] ([place]) Comment on above: Performed By: #### L IPID, A1C, GFR, CMP #### [place] [phone] Globulin 3.3 G/dL Normal [facility] ([place]) Comment on above: Performed By: #### L IPID, A1C, GFR, CMP #### [place] [phone] Glucose [Mass/Vol] 149 mg/dL High 80-115 [facility] ([place]) Comment on above: Performed By: #### L IPID, A1C, GFR, CMP #### [address] [address] Potassium [Moles/Vol] 4.5 mmol/L Normal 3.5-5.1 [facility] ([place]) Comment on above: Performed By: #### L IPID, A1C, GFR, CMP #### [address] [address] Sodium [Moles/Vol] 139 mmol/L Normal 136-145 [facility] ([place]) Comment on above: Performed By: #### L IPID, A1C, GFR, CMP #### [address] [address] Total Protein 7.1 G/dL Normal 6.4-8.2 [facility] ([place]) Comment on above: Performed By: #### L IPID, A1C, GFR, CMP #### [address] [address] Urea nitrogen [Mass/Vol] 29 mg/dL High 7-18 [facility] ([place] Comment on above: Performed By: #### L IPID, A1C, GFR, CMP #### [address] [address] LIPIDon 12-05-2023 Cholesterol [Mass/Vol] 213 mg/dL High 0-200 [facility] ([place]) Comment on above: Result Comment: Chol esterol Reference Interval: Less than 200 Desirable 200-239 Borderline high risk 240 and above High risk Performed By: #### L IPID, A1C, GFR, CMP #### [address] [address] Cholesterol in HDL [Mass/Vol] 54 mg/dL Normal 40-60 [facility] ([place]) Comment on above: Performed By: #### L IPID, A1C, GFR, CMP #### [address] [address] Cholesterol in LDL [Mass/Vol] 133 mg/dL High 0-130 [facility] ([place]) Comment on above: Performed By: #### L IPID, A1C, GFR, CMP #### [address] [address] Triglyceride [Mass/Vol] 129 mg/dL Normal 0-150 [facility] ([place]) Comment on above: Result Comment: Trig lyceride Reference Interval: Less than 150 Normal 150-199 Borderline high risk 200-499 High risk 500 or higher Very high risk Performed By: #### L IPID, A1C, GFR, CMP #### [address] [address] .GFRon 08-21-2023 GFR 78 ml/min/1.73sqm Normal [facility] ([place]) Comment on above: Result Comment: GFR Population mean for , Non- Americans Ages 20-29 = 116 mL/min/1.73 sq.m. Ages 30-39 = 107 mL/min/1.73 sq.m. Ages 40-49 = 99 mL/min/1.73 sq.m. Ages 50-59 = 93 mL/min/1.73 sq.m. Ages 60-69 = 85 mL/min/1.73 sq.m. Ages 70+ = 75 mL/min/1.73 sq.m. Chronic Kidney Disease: Less than 60 mL/min/1.73 square meters End Stage Renal Disease: Less than 15 mL/min/1.73 square meters Performed By: #### L IPID, A1C, GFR, CMP #### [address] [address] GFR Non- 64 ml/min/1.73sqm Normal [facility] ([place]) Comment on above: Result Comment: GFR Population mean for , Non- Americans Ages 20-29 = 116 mL/min/1.73 sq.m. Ages 30-39 = 107 mL/min/1.73 sq.m. Ages 40-49 = 99 mL/min/1.73 sq.m. Ages 50-59 = 93 mL/min/1.73 sq.m. Ages 60-69 = 85 mL/min/1.73 sq.m. Ages 70+ = 75 mL/min/1.73 sq.m. Chronic Kidney Disease: Less than 60 mL/min/1.73 square meters End Stage Renal Disease: Less than 15 mL/min/1.73 square meters Performed By: #### L IPID, A1C, GFR, CMP #### [address] [address] [id number] By: SYSTEM SYSTEM on 08-21-2023 HbA1c (Bld) [Mass fraction] 7.3 % High 4.3-6.4 AO ADM SS Comment on above: Performed By: #### L IPID, A1C, GFR, CMP #### [address] [address] CMPon 08-21-2023 Albumin Level 3.5 G/dL Normal 3.4-4.8 [facility] ([place]) Comment on above: Performed By: #### L IPID, A1C, GFR, CMP #### [address] [address] ALT [Catalytic activity/Vol] 38 U/L Normal 16-63 [facility] ([place]) Comment on above: Performed By: #### L IPID, A1C, GFR, CMP #### [address] [address] AST [Catalytic activity/Vol] 18 U/L Normal 10-40 [facility] ([place]) Comment on above: Performed By: #### L IPID, A1C, GFR, CMP #### [address] [address] Bili Total 0.6 mg/dL Normal 0.2-1.0 [facility] ([place]) Comment on above: Result Comment: Use of this assay is not recommended for patients undergoing treatment with eltrombopag due to the potential for falsely elevated results. Performed By: #### L IPID, A1C, GFR, CMP #### [address] [address] BUN/Creatinine Ratio 20 ratio Normal 7-27 [facility] ([place]) Comment on above: Performed By: #### L IPID, A1C, GFR, CMP #### [address] [address] Total Protein 7.5 G/dL Normal 6.4-8.2 [facility] ([place]) Comment on above: Performed By: #### L IPID, A1C, GFR, CMP #### [address] [address] CMPOrdered By: SYSTEM SYSTEM on 08-21-2023 Albumin/Globulin [Mass ratio] 0.9 {ratio} Low 1.1-2.5 AO ADM SS Comment on above: Performed By: #### L IPID, A1C, GFR, CMP #### [address] [address] ALP [Catalytic activity/Vol] 75 U/L Normal 40-135 AO ADM SS Comment on above: Performed By: #### L IPID, A1C, GFR, CMP #### [address] [address] Calcium [Mass/Vol] 9.9 mg/dL Normal 8.4-10.2 AO ADM SS Comment on above: Performed By: #### L IPID, A1C, GFR, CMP #### [address] [address] Chloride [Moles/Vol] 102 mmol/L Normal 98-107 AO A DM SS Comment on above: Performed By: #### L IPID, A1C, GFR, CMP #### [address] [address] CO2 [Moles/Vol] 29 mmol/L Normal 23-31 AO ADM SS Comment on above: Performed By: #### L IPID, A1C, GFR, CMP #### [address] [address] Creatinine [Mass/Vol] 1.15 mg/dL Normal 0.70-1.30 AO ADM SS Comment on above: Performed By: #### L IPID, A1C, GFR, CMP #### [address] [address] Electrolyte Balance 10.0 mEq/L Normal 4.0-15.0 AO AD M SS Comment on above: Performed By: #### L IPID, A1C, GFR, CMP #### [address] [address] Globulin 4.0 G/dL Normal AO ADM SS Comment on above: Performed By: #### L IPID, A1C, GFR, CMP #### [address] [address] Glucose [Mass/Vol] 154 mg/dL High 80-115 AO ADM SS Comment on above: Performed By: #### L IPID, A1C, GFR, CMP #### [place] [address] [address] Potassium [Moles/Vol] 5.3 mmol/L High 3.5-5.1 AO ADM SS Comment on above: Performed By: #### L IPID, A1C, GFR, CMP #### [place] [address] [address] Sodium [Moles/Vol] 141 mmol/L Normal 136-145 AO ADM SS Comment on above: Performed By: #### L IPID, A1C, GFR, CMP #### [place] [address] [address] Urea nitrogen [Mass/Vol] 23 mg/dL High 7-18 AO ADM SS Comment on above: Performed By: #### L IPID, A1C, GFR, CMP #### [address] [address] LABORATORYOrdered By: SYSTEM SYSTEM on 08-21-2023 Albumin BCP dye [Mass/Vol] 3.5 G/dL Normal 3.4 - 4.8 G/dL AO ADM SS ALT With P-5'-P [Catalytic activity/Vol] 38 U/L Normal 16 - 63 U/L AO ADM SS AST With P-5'-P [Catalytic activity/Vol] 18 U/L Normal 10 - 40 U/L AO ADM SS Bilirubin [Mass/Vol] 0.6 mg/dL Normal 0.2 - 1 .0 mg/dL AO ADM SS Comment on above: Interpretive Data: U se of this assay is not recommended for patients undergoing treatment with eltrombopag due to the potential for falsely elevated results. GFR/1.73 sq M.predicted among blacks MDRD (S/P/Bld) [Vol rate/Area] 78 ml/min/1.73sqm Invalid Interpretation Code AO Chemistry S Comment on above: Interpretive Data: GFR Population mean for , Non- Americans Ages 20-29 = 116 mL/min/1.73 sq.m. Ages 30-39 = 107 mL/min/1.73 sq.m. Ages 40-49 = 99 mL/min/1.73 sq.m. Ages 50-59 = 93 mL/min/1.73 sq.m. Ages 60-69 = 85 mL/min/1.73 sq.m. Ages 70+ = 75 mL/min/1.73 sq.m. Chronic Kidney Disease: Less than 60 mL/min/1.73 square meters End Stage Renal Disease: Less than 15 mL/min/1.73 square meters GFR/1.73 sq M.predicted among non-blacks MDRD (S/P/Bld) [Vol rate/Area] 64 ml/min/1.73sqm Invalid Interpretation Code AO Chemistry S Comment on above: Interpretive Data: GFR Population mean for , Non- Americans Ages 20-29 = 116 mL/min/1.73 sq.m. Ages 30-39 = 107 mL/min/1.73 sq.m. Ages 40-49 = 99 mL/min/1.73 sq.m. Ages 50-59 = 93 mL/min/1.73 sq.m. Ages 60-69 = 85 mL/min/1.73 sq.m. Ages 70+ = 75 mL/min/1.73 sq.m. Chronic Kidney Disease: Less than 60 mL/min/1.73 square meters End Stage Renal Disease: Less than 15 mL/min/1.73 square meters Protein [Mass/Vol] 7.5 G/dL Normal 6.4 - 8.2 G/dL AO ADM SS Urea nitrogen/Creatinine [Mass ratio] 20 ratio Normal 7 - 27 ratio AO ADM SS LIPIDOrdered By: Silvia huynh on 08-21-2023 Cholesterol [Mass/Vol] 246 mg/dL High 0-200 AO ADM SS Comment on above: Interpretive Data: C holesterol Reference Interval: Less than 200 Desirable 200-239 Borderline high risk 240 and above High risk Result Comment: Chol esterol Reference Interval: Less than 200 Desirable 200-239 Borderline high risk 240 and above High risk Performed By: #### L IPID, A1C, GFR, CMP #### [address] [address] Cholesterol in HDL [Mass/Vol] 58 mg/dL Normal 40-60 AO ADM SS Comment on above: Performed By: #### L IPID, A1C, GFR, CMP #### [place] [id number] Cholesterol in LDL [Mass/Vol] 145 mg/dL High 0-130 AO ADM SS Comment on above: Performed By: #### L IPID, A1C, GFR, CMP #### [address] [address] Triglyceride [Mass/Vol] 216 mg/dL High 0-150 AO ADM SS Comment on above: Interpretive Data: T riglyceride Reference Interval: Less than 150 Normal 150-199 Borderline high risk 200-499 High risk 500 or higher Very high risk Result Comment: Trig lyceride Reference Interval: Less than 150 Normal 150-199 Borderline high risk 200-499 High risk 500 or higher Very high risk Performed By: #### L IPID, A1C, GFR, CMP #### [address] [address] .Auto Diffon 07-28-2023 Basophil, Absolute 0.0 10 3/mcL Normal 0.0-0.2 [facility] ([place]) Comment on above: Performed By: #### A 1C, ADIFF, ANEU, BMP, GFR, CBC #### [address] [address] Basophils/100 WBC (Bld) 0.6 % Normal 0.0-2.5 [facility] ([place]) Comment on above: Performed By: #### A 1C, ADIFF, ANEU, BMP, GFR, CBC #### [address] [address] Eosinophil, Absolute 0.1 10 3/mcL Normal 0.0-0.4 [facility] ([place]) Comment on above: Performed By: #### A 1C, ADIFF, ANEU, BMP, GFR, CBC #### [address] [address] Eosinophils/100 WBC (Bld) 2.1 % Normal 0.0-7.0 [facility] ([place]) Comment on above: Performed By: #### A 1C, ADIFF, ANEU, BMP, GFR, CBC #### [address] [address] Lymphocyte, Absolute 2.2 10 3/mcL Normal 0.8-3.9 [facility] ([place]) Comment on above: Performed By: #### A 1C, ADIFF, ANEU, BMP, GFR, CBC #### [address] [address] Lymphocytes/100 WBC (Bld) 32.5 % Normal 10.0-50.0 [facility] ([place]) Comment on above: Performed By: #### A 1C, ADIFF, ANEU, BMP, GFR, CBC #### [address] [address] Monocyte, Absolute 0.5 10 3/mcL Normal 0.2-1.0 [facility] ([place]) Comment on above: Performed By: #### A 1C, ADIFF, ANEU, BMP, GFR, CBC #### [address] [address] Monocytes/100 WBC (Bld) 7.8 % Normal 1.7-13.0 [facility] ([place] Comment on above: Performed By: #### A 1C, ADIFF, ANEU, BMP, GFR, CBC #### [address] [address] Neutrophils/100 WBC (Bld) 57.0 % Normal 37.0-80.0 [facility] ([place] Comment on above: Performed By: #### A 1C, ADIFF, ANEU, BMP, GFR, CBC #### [address] [address] .GFRon 07-28-2023 GFR 74 ml/min/1.73sqm Normal [facility] ([place]) Comment on above: Result Comment: GFR Population mean for , Non- Americans Ages 20-29 = 116 mL/min/1.73 sq.m. Ages 30-39 = 107 mL/min/1.73 sq.m. Ages 40-49 = 99 mL/min/1.73 sq.m. Ages 50-59 = 93 mL/min/1.73 sq.m. Ages 60-69 = 85 mL/min/1.73 sq.m. Ages 70+ = 75 mL/min/1.73 sq.m. Chronic Kidney Disease: Less than 60 mL/min/1.73 square meters End Stage Renal Disease: Less than 15 mL/min/1.73 square meters Performed By: #### A 1C, ADIFF, ANEU, BMP, GFR, CBC #### [address] [address] GFR Non- 61 ml/min/1.73sqm Normal [facility] ([place]) Comment on above: Result Comment: GFR Population mean for , Non- Americans Ages 20-29 = 116 mL/min/1.73 sq.m. Ages 30-39 = 107 mL/min/1.73 sq.m. Ages 40-49 = 99 mL/min/1.73 sq.m. Ages 50-59 = 93 mL/min/1.73 sq.m. Ages 60-69 = 85 mL/min/1.73 sq.m. Ages 70+ = 75 mL/min/1.73 sq.m. Chronic Kidney Disease: Less than 60 mL/min/1.73 square meters End Stage Renal Disease: Less than 15 mL/min/1.73 square meters Performed By: #### A 1C, ADIFF, ANEU, BMP, GFR, CBC #### [address] [address] .NEUABSon 07-28-2023 Neutrophil, Absolute 3.9 10 3/mcL Normal 2.9-6.2 [facility] ([place] Comment on above: Performed By: #### A 1C, ADIFF, ANEU, BMP, GFR, CBC #### [address] [address] A1Con 07-28-2023 HbA1c (Bld) [Mass fraction] 7.2 % High 4.3-6.4 [facility] ([place] Comment on above: Performed By: #### A 1C, ADIFF, ANEU, BMP, GFR, CBC #### [address] [address] BMPon 07-28-2023 BUN/Creatinine Ratio 21 ratio Normal 7-27 [facility] ([place]) Comment on above: Performed By: #### A 1C, ADIFF, ANEU, BMP, GFR, CBC #### [address] [address] Calcium [Mass/Vol] 9.2 mg/dL Normal 8.4-10.2 [facility] ([place] Comment on above: Performed By: #### A 1C, ADIFF, ANEU, BMP, GFR, CBC #### [address] [address] Chloride [Moles/Vol] 103 mmol/L Normal 98-107 [facility] ([place] Comment on above: Performed By: #### A 1C, ADIFF, ANEU, BMP, GFR, CBC #### [address] [address] CO2 [Moles/Vol] 26 mmol/L Normal 23-31 [facility] ([place]) Comment on above: Performed By: #### A 1C, ADIFF, ANEU, BMP, GFR, CBC #### [address] [address] Creatinine [Mass/Vol] 1.20 mg/dL Normal 0.70-1.30 [facility] ([place]) Comment on above: Performed By: #### A 1C, ADIFF, ANEU, BMP, GFR, CBC #### [address] [address] Electrolyte Balance 11.0 mEq/L Normal 4.0-15.0 [facility] ([place]) Comment on above: Performed By: #### A 1C, ADIFF, ANEU, BMP, GFR, CBC #### [address] [address] Glucose [Mass/Vol] 236 mg/dL High 80-115 [facility] ([place] Comment on above: Performed By: #### A 1C, ADIFF, ANEU, BMP, GFR, CBC #### [address] [address] Potassium [Moles/Vol] 5.1 mmol/L Normal 3.5-5.1 [facility] ([place]) Comment on above: Performed By: #### A 1C, ADIFF, ANEU, BMP, GFR, CBC #### [address] [address] Sodium [Moles/Vol] 140 mmol/L Normal 136-145 [facility] ([place] Comment on above: Performed By: #### A 1C, ADIFF, ANEU, BMP, GFR, CBC #### [address] [address] Urea nitrogen [Mass/Vol] 25 mg/dL High 7-18 [facility] ([place] Comment on above: Performed By: #### A 1C, ADIFF, ANEU, BMP, GFR, CBC #### [address] [address] CBCon 07-28-2023 Erythrocyte distribution width (RBC) [Ratio] 13.1 % Normal 11.5-14.5 [facility] ([place] Comment on above: Performed By: #### A 1C, ADIFF, ANEU, BMP, GFR, CBC #### [address] [address] Hematocrit (Bld) [Volume fraction] 45.8 % Normal 42.0-52.0 [facility] ([place] Comment on above: Performed By: #### A 1C, ADIFF, ANEU, BMP, GFR, CBC #### [address] [address] Hgb 15.7 G/dL Normal 14.0-18.0 [facility] ([place] Comment on above: Performed By: #### A 1C, ADIFF, ANEU, BMP, GFR, CBC #### [address] [address] MCH (RBC) [Entitic mass] 33.2 pg High 27.0-31.2 [facility] ([place]) Comment on above: Performed By: #### A 1C, ADIFF, ANEU, BMP, GFR, CBC #### [place] [id number] MCHC 34.3 G/dL Normal 31.8-35.4 [facility] ([place] Comment on above: Performed By: #### A 1C, ADIFF, ANEU, BMP, GFR, CBC #### [place] [address] MCV (RBC) [Entitic vol] 96.9 fL High 80.0-94.0 [facility] ([place] Comment on above: Performed By: #### A 1C, ADIFF, ANEU, BMP, GFR, CBC #### [place] [address] Platelet 200 10 3/mcL Normal 130-400 [facility] ([place]) Comment on above: Performed By: #### A 1C, ADIFF, ANEU, BMP, GFR, CBC #### [place] [address] Platelet mean volume (Bld) [Entitic vol] 7.0 fL Low 7.4-10.4 [facility] ([place]) Comment on above: Performed By: #### A 1C, ADIFF, ANEU, BMP, GFR, CBC #### [place] [address] RBC 4.72 10 6/mcL Normal 4.04-6.13 [facility] ([place]) Comment on above: Performed By: #### A 1C, ADIFF, ANEU, BMP, GFR, CBC #### [place] [address] WBC 6.9 10 3/mcL Normal 4.6-10.8 [facility] ([place]) Comment on above: Performed By: #### A 1C, ADIFF, ANEU, BMP, GFR, CBC #### [place] [address] LABORATORYOrdered By: SYSTEM SYSTEM on 07-28-2023 Basophil, Absolute 0.0 103/mcL Normal 0.0 - 0.2 10^3/mcL AO Workflow SS Basophils/100 WBC (Bld) 0.6 % Normal 0.0 - 2.5 % AO Workflow SS Calcium [Mass/Vol] 9.2 mg/dL Normal 8.4 - 10. 2 mg/dL AO ADM SS Chloride [Moles/Vol] 103 mmol/L Normal 98 - 10 7 mmol/L AO ADM SS CO2 [Moles/Vol] 26 mmol/L Normal 23 - 31 mmol/L AO ADM SS Creatinine [Mass/Vol] 1.20 mg/dL Normal 0.70 - 1.30 mg/dL AO ADM SS Electrolyte Balance 11.0 mEq/L Normal 4.0 - 15 .0 mEq/L AO ADM SS Eosinophil, Absolute 0.1 103/mcL Normal 0.0 - 0 .4 10^3/mcL AO Workflow SS Eosinophils/100 WBC (Bld) 2.1 % Normal 0.0 - 7.0 % AO Workflow SS Erythrocyte distribution width (RBC) [Ratio] 13.1 % Normal 11.5 - 14.5 % AO Workflow SS GFR/1.73 sq M.predicted among blacks MDRD (S/P/Bld) [Vol rate/Area] 74 ml/min/1.73sqm Invalid Interpretation Code AO Chemistry S Comment on above: Interpretive Data: GFR Population mean for , Non- Americans Ages 20-29 = 116 mL/min/1.73 sq.m. Ages 30-39 = 107 mL/min/1.73 sq.m. Ages 40-49 = 99 mL/min/1.73 sq.m. Ages 50-59 = 93 mL/min/1.73 sq.m. Ages 60-69 = 85 mL/min/1.73 sq.m. Ages 70+ = 75 mL/min/1.73 sq.m. Chronic Kidney Disease: Less than 60 mL/min/1.73 square meters End Stage Renal Disease: Less than 15 mL/min/1.73 square meters GFR/1.73 sq M.predicted among non-blacks MDRD (S/P/Bld) [Vol rate/Area] 61 ml/min/1.73sqm Invalid Interpretation Code AO Chemistry S Comment on above: Interpretive Data: GFR Population mean for , Non- Americans Ages 20-29 = 116 mL/min/1.73 sq.m. Ages 30-39 = 107 mL/min/1.73 sq.m. Ages 40-49 = 99 mL/min/1.73 sq.m. Ages 50-59 = 93 mL/min/1.73 sq.m. Ages 60-69 = 85 mL/min/1.73 sq.m. Ages 70+ = 75 mL/min/1.73 sq.m. Chronic Kidney Disease: Less than 60 mL/min/1.73 square meters End Stage Renal Disease: Less than 15 mL/min/1.73 square meters Glucose [Mass/Vol] 236 mg/dL High 80 - 115 mg/dL AO ADM SS HbA1c (Bld) [Mass fraction] 7.2 % High 4.3 - 6.4 % AO ADM SS Hematocrit (Bld) [Volume fraction] 45.8 % Normal 42.0 - 52.0 % AO Workflow SS Hemoglobin (Bld) [Mass/Vol] 15.7 G/dL Normal 14.0 - 18.0 G/dL AO Workflow SS Lymphocyte, Absolute 2.2 103/mcL Normal 0.8 - 3 .9 10^3/mcL AO Workflow SS Lymphocytes/100 WBC (Bld) 32.5 % Normal 10.0 - 50.0 % AO Workflow SS MCH (RBC) [Entitic mass] 33.2 pg High 27.0 - 31.2 pg AO Workflow SS MCHC 34.3 G/dL Normal 31.8 - 35.4 G/dL AO Workflow SS MCV (RBC) [Entitic vol] 96.9 fL High 80.0 - 94.0 fL AO Workflow SS Monocyte, Absolute 0.5 103/mcL Normal 0.2 - 1.0 10^3/mcL AO Workflow SS Monocytes/100 WBC (Bld) 7.8 % Normal 1.7 - 13.0 % AO Workflow SS Neutrophil, Absolute 3.9 103/mcL Normal 2.9 - 6 .2 10^3/mcL AO Workflow SS Neutrophils/100 WBC (Bld) 57.0 % Normal 37.0 - 80.0 % AO Workflow SS Platelet mean volume (Bld) [Entitic vol] 7.0 fL Low 7.4 - 10.4 fL AO Workflow SS Platelets (Bld) [#/Vol] 200 103/mcL Normal 130 - 400 10^3/mcL AO Workflow SS Potassium [Moles/Vol] 5.1 mmol/L Normal 3.5 - 5.1 mmol/L AO ADM SS RBC (Bld) [#/Vol] 4.72 106/mcL Normal 4.04 - 6.1 3 10^6/mcL AO Workflow SS Sodium [Moles/Vol] 140 mmol/L Normal 136 - 145 mmol/L AO ADM SS Urea nitrogen [Mass/Vol] 25 mg/dL High 7 - 18 mg/dL AO ADM SS Urea nitrogen/Creatinine [Mass ratio] 21 ratio Normal 7 - 27 ratio AO ADM SS WBC (Bld) [#/Vol] 6.9 103/mcL Normal 4.6 - 10.8 10^3/mcL AO Workflow SS .GFRon 04-18-2023 GFR 78 ml/min/1.73sqm Normal [facility] ([place] Comment on above: Result Comment: GFR Population mean for , Non- Americans Ages 20-29 = 116 mL/min/1.73 sq.m. Ages 30-39 = 107 mL/min/1.73 sq.m. Ages 40-49 = 99 mL/min/1.73 sq.m. Ages 50-59 = 93 mL/min/1.73 sq.m. Ages 60-69 = 85 mL/min/1.73 sq.m. Ages 70+ = 75 mL/min/1.73 sq.m. Chronic Kidney Disease: Less than 60 mL/min/1.73 square meters End Stage Renal Disease: Less than 15 mL/min/1.73 square meters Performed By: #### L IPID, A1C, GFR, CMP #### [place] [id number] [place], [place] [address] GFR Non- 64 ml/min/1.73sqm Normal [facility] ([place]) Comment on above: Result Comment: GFR Population mean for , Non- Americans Ages 20-29 = 116 mL/min/1.73 sq.m. Ages 30-39 = 107 mL/min/1.73 sq.m. Ages 40-49 = 99 mL/min/1.73 sq.m. Ages 50-59 = 93 mL/min/1.73 sq.m. Ages 60-69 = 85 mL/min/1.73 sq.m. Ages 70+ = 75 mL/min/1.73 sq.m. Chronic Kidney Disease: Less than 60 mL/min/1.73 square meters End Stage Renal Disease: Less than 15 mL/min/1.73 square meters Performed By: #### L IPID, A1C, GFR, CMP #### [address] [address] A1Con 04-18-2023 HbA1c (Bld) [Mass fraction] 6.9 % High 4.3-6.4 [facility] ([place]) Comment on above: Performed By: #### L IPID, A1C, GFR, CMP #### [address] [address] CMPon 04-18-2023 Calcium [Mass/Vol] 9.2 mg/dL Normal 8.4-10.2 [facility] [place] ([place]) Comment on above: Performed By: #### L IPID, A1C, GFR, CMP #### [address] [address] Albumin Level 3.8 G/dL Normal 3.4-4.8 [facility] ([place]) Comment on above: Performed By: #### L IPID, A1C, GFR, CMP #### [address] [address] Albumin/Globulin [Mass ratio] 1.0 {ratio} Low 1.1-2.5 [facility] ([place]) Comment on above: Performed By: #### L IPID, A1C, GFR, CMP #### [address] [address] ALP [Catalytic activity/Vol] 70 U/L Normal 40-135 [facility] ([place]) Comment on above: Performed By: #### L IPID, A1C, GFR, CMP #### [address] [address] ALT [Catalytic activity/Vol] 39 U/L Normal 16-63 [facility] ([place]) Comment on above: Performed By: #### L IPID, A1C, GFR, CMP #### [address] [address] AST [Catalytic activity/Vol] 17 U/L Normal 10-40 [facility] ([place]) Comment on above: Performed By: #### L IPID, A1C, GFR, CMP #### [address] [address] Bili Total 0.8 mg/dL Normal 0.2-1.0 [facility] ([place]) Comment on above: Result Comment: Use of this assay is not recommended for patients undergoing treatment with eltrombopag due to the potential for falsely elevated results. Performed By: #### L IPID, A1C, GFR, CMP #### [place] [id number] BUN/Creatinine Ratio 23 ratio Normal 7-27 [facility] ([place]) Comment on above: Performed By: #### L IPID, A1C, GFR, CMP #### [address] [address] Chloride [Moles/Vol] 101 mmol/L Normal 98-107 [facility] ([place]) Comment on above: Performed By: #### L IPID, A1C, GFR, CMP #### [address] [address] CO2 [Moles/Vol] 30 mmol/L Normal 23-31 [facility] ([place]) Comment on above: Performed By: #### L IPID, A1C, GFR, CMP #### [address] [address] Creatinine [Mass/Vol] 1.15 mg/dL Normal 0.70-1.30 [facility] ([place]) Comment on above: Performed By: #### L IPID, A1C, GFR, CMP #### [address] [address] Electrolyte Balance 6.0 mEq/L Normal 4.0-15.0 [facility] ([place]) Comment on above: Performed By: #### L IPID, A1C, GFR, CMP #### [address] [address] Globulin 3.7 G/dL Normal [facility] ([place]) Comment on above: Performed By: #### L IPID, A1C, GFR, CMP #### [address] [address] Glucose [Mass/Vol] 146 mg/dL High 80-115 [facility] ([place]) Comment on above: Performed By: #### L IPID, A1C, GFR, CMP #### [address] [address] Potassium [Moles/Vol] 4.7 mmol/L Normal 3.5-5.1 [facility] ([place]) Comment on above: Performed By: #### L IPID, A1C, GFR, CMP #### [address] [address] Sodium [Moles/Vol] 137 mmol/L Normal 136-145 [facility] ([place] Comment on above: Performed By: #### L IPID, A1C, GFR, CMP #### [address] [address] Total Protein 7.5 G/dL Normal 6.4-8.2 [facility] ([place]) Comment on above: Performed By: #### L IPID, A1C, GFR, CMP #### [address] [address] Urea nitrogen [Mass/Vol] 27 mg/dL High 7-18 [facility] ([place] Comment on above: Performed By: #### L IPID, A1C, GFR, CMP #### [address] [address] LIPIDon 04-18-2023 Cholesterol [Mass/Vol] 202 mg/dL High 0-200 [facility] ([place]) Comment on above: Result Comment: Chol esterol Reference Interval: Less than 200 Desirable 200-239 Borderline high risk 240 and above High risk Performed By: #### L IPID, A1C, GFR, CMP #### [address] [address] Cholesterol in HDL [Mass/Vol] 56 mg/dL Normal 40-60 [facility] ([place]) Comment on above: Performed By: #### L IPID, A1C, GFR, CMP #### [place] [address] [place], [place] [address] Cholesterol in LDL [Mass/Vol] 125 mg/dL Normal 0-130 [facility] ([place]) Comment on above: Performed By: #### L IPID, A1C, GFR, CMP #### [place] [address] [place], [place] [address] Triglyceride [Mass/Vol] 107 mg/dL Normal 0-150 [facility] ([place]) Comment on above: Result Comment: Trig lyceride Reference Interval: Less than 150 Normal 150-199 Borderline high risk 200-499 High risk 500 or higher Very high risk Performed By: #### L IPID, A1C, GFR, CMP #### [place] [address] [place], [place] [address] LABORATORYOrdered By: SYSTEM SYSTEM on 12-13-2022 Albumin BCP dye [Mass/Vol] 3.9 G/dL Invalid Interpretation Code 3.4 - 4.8 G/dL AO ADM SS Albumin/Globulin [Mass ratio] 1.2 {ratio} Invalid Interpretation Code 1.1 - 2.5 ratio AO ADM SS ALP [Catalytic activity/Vol] 64 U/L Invalid Interpretation Code 40 - 135 U/L AO ADM SS ALT With P-5'-P [Catalytic activity/Vol] 44 U/L Invalid Interpretation Code 16 - 63 U/L AO ADM SS AST With P-5'-P [Catalytic activity/Vol] 24 U/L Invalid Interpretation Code 10 - 40 U/L AO ADM SS Bilirubin [Mass/Vol] 0.5 mg/dL Invalid Interpretation Code 0.2 - 1.0 mg/dL AO ADM SS Calcium [Mass/Vol] 9.7 mg/dL Invalid Interpretation Code 8.4 - 10.2 mg/dL AO ADM SS Chloride [Moles/Vol] 104 mmol/L Invalid Interpretation Code 98 - 107 mmol/L AO ADM SS CO2 [Moles/Vol] 27 mmol/L Invalid Interpretation Code 23 - 31 mmol/L AO ADM SS Creatinine [Mass/Vol] 1.07 mg/dL Invalid Interpretation Code 0.70 - 1.30 mg/dL AO ADM SS Electrolyte Balance 10.0 mEq/L Invalid Interpretation Code 4.0 - 15.0 mEq/L AO ADM SS GFR/1.73 sq M.predicted among blacks MDRD (S/P/Bld) [Vol rate/Area] 85 ml/min/1.73sqm Invalid Interpretation Code AO Chemistry S GFR/1.73 sq M.predicted among non-blacks MDRD (S/P/Bld) [Vol rate/Area] 70 ml/min/1.73sqm Invalid Interpretation Code AO Chemistry S Globulin 3.3 G/dL Invalid Interpretation Code AO ADM SS Glucose [Mass/Vol] 150 mg/dL Invalid Interpretation Code 80 - 115 mg/dL AO ADM SS HbA1c (Bld) [Mass fraction] 6.9 % Invalid Interpretation Code 4.3 - 6.4 % AO ADM SS Potassium [Moles/Vol] 5.3 mmol/L Invalid Interpretation Code 3.5 - 5.1 mmol/L AO ADM SS Protein [Mass/Vol] 7.2 G/dL Invalid Interpretation Code 6.4 - 8.2 G/dL AO ADM SS Sodium [Moles/Vol] 141 mmol/L Invalid Interpretation Code 136 - 145 mmol/L AO ADM SS Urea nitrogen [Mass/Vol] 24 mg/dL Invalid Interpretation Code 7 - 18 mg/dL AO ADM SS Urea nitrogen/Creatinine [Mass ratio] 22 ratio Invalid Interpretation Code 7 - 27 ratio AO ADM SS LABORATORYOrdered By: Laura Dominguez on 12-13-2022 Albumin DL <= 20 mg/L (U) [Mass/Vol] 1079 mcg/dL Invalid Interpretation Code AO ADM SS Albumin/Creatinine DL <= 20 mg/L (U) [Mass ratio] 19 mcg/mg Invalid Interpretation Code 0 - 30 mcg/mg AO ADM SS Cholesterol [Mass/Vol] 219 mg/dL Invalid Interpretation Code 0 - 200 mg/dL AO ADM SS Cholesterol in HDL [Mass/Vol] 62 mg/dL Invalid Interpretation Code 40 - 60 mg/dL AO ADM SS Cholesterol in LDL [Mass/Vol] 133 mg/dL Invalid Interpretation Code 0 - 130 mg/dL AO ADM SS Creatinine (U) [Mass/Vol] 56.4 mg/dL Invalid Interpretation Code 39.0 - 259.0 mg/dL AO ADM SS Triglyceride [Mass/Vol] 119 mg/dL Invalid Interpretation Code 0 - 150 mg/dL AO ADM SS LABORATORYOrdered By: SYSTEM SYSTEM on 08-09-2022 Albumin BCP dye [Mass/Vol] 3.8 G/dL Invalid Interpretation Code 3.4 - 4.8 G/dL AO ADM SS Albumin/Globulin [Mass ratio] 1.1 {ratio} Invalid Interpretation Code 1.1 - 2.5 ratio AO ADM SS ALP [Catalytic activity/Vol] 73 U/L Invalid Interpretation Code 40 - 135 U/L AO ADM SS ALT With P-5'-P [Catalytic activity/Vol] 41 U/L Invalid Interpretation Code 16 - 63 U/L AO ADM SS AST With P-5'-P [Catalytic activity/Vol] 22 U/L Invalid Interpretation Code 10 - 40 U/L AO ADM SS Bilirubin [Mass/Vol] 0.6 mg/dL Invalid Interpretation Code 0.2 - 1.0 mg/dL AO ADM SS Calcium [Mass/Vol] 9.6 mg/dL Invalid Interpretation Code 8.4 - 10.2 mg/dL AO ADM SS Chloride [Moles/Vol] 102 mmol/L Invalid Interpretation Code 98 - 107 mmol/L AO ADM SS CO2 [Moles/Vol] 27 mmol/L Invalid Interpretation Code 23 - 31 mmol/L AO ADM SS Creatinine [Mass/Vol] 1.06 mg/dL Invalid Interpretation Code 0.70 - 1.30 mg/dL AO ADM SS Electrolyte Balance 10.0 mEq/L Invalid Interpretation Code 4.0 - 15.0 mEq/L AO ADM SS GFR 86 ml/min/1.73sqm Invalid Interpretation Code AO Chemistry S GFR Non- 71 ml/min/1.73sqm Invalid Interpretation Code AO Chemistry S Globulin 3.5 G/dL Invalid Interpretation Code AO ADM SS Glucose [Mass/Vol] 172 mg/dL Invalid Interpretation Code 80 - 115 mg/dL AO ADM SS HbA1c (Bld) [Mass fraction] 6.7 % Invalid Interpretation Code 4.3 - 6.4 % AO ADM SS Potassium [Moles/Vol] 5.1 mmol/L Invalid Interpretation Code 3.5 - 5.1 mmol/L AO ADM SS Protein [Mass/Vol] 7.3 G/dL Invalid Interpretation Code 6.4 - 8.2 G/dL AO ADM SS Sodium [Moles/Vol] 139 mmol/L Invalid Interpretation Code 136 - 145 mmol/L AO ADM SS Urea nitrogen [Mass/Vol] 18 mg/dL Invalid Interpretation Code 7 - 18 mg/dL AO ADM SS Urea nitrogen/Creatinine [Mass ratio] 17 ratio Invalid Interpretation Code 7 - 27 ratio AO ADM SS LABORATORYOrdered By: Smitha Rodriguez on 08-09-2022 Cholesterol [Mass/Vol] 223 mg/dL Invalid Interpretation Code 0 - 200 mg/dL AO ADM SS Cholesterol in HDL [Mass/Vol] 67 mg/dL Invalid Interpretation Code 40 - 60 mg/dL AO ADM SS Cholesterol in LDL [Mass/Vol] 136 mg/dL Invalid Interpretation Code 0 - 130 mg/dL AO ADM SS Triglyceride [Mass/Vol] 102 mg/dL Invalid Interpretation Code 0 - 150 mg/dL AO ADM SS CNOVon 04-06-2022 CNOV Office Visit ([facility]) ---- TOM NORWOOD ([id number]) 1960 M Date Time Provider Department 04/06/22 9:10 AM SUSIE CHAMBERS [facility] During your visit today, we recorded the following information about you: Temperature Pulse Respiration Blood pressure 98.6 degrees 73/minute 16/minute 131/77 Weight 114.8 kg Susie Chambers DO 04/06/2022 11:49 AM Signed Tom De Leóne is a 61 year old MALE who presents with Right Hip Pain (Fall into a drain at customers home--Thursday. Right hip pain, 2.0cm laceration on left simeon, right elbo pain----tetnus is up to date) HPI History reviewed. No pertinent past medical history. There is no problem list on file for this patient. Current Outpatient Medications Medication Sig Dispense Refill lisinopril (ZESTRIL, PRINIVIL) 20 mg tablet Take 20 mg by mouth once daily. metaxalone (SKELAXIN) 800 mg tablet take 1 tablet by mouth three times a day for 10 days OZEMPIC 1 mg/dose (4 mg/3 mL) pen injector inject 1 dose (1 MG) subcutaneously every week as directed empagliflozin-metFO RMIN (SYNJARDY) 12.5-500 mg tab Take 1 tablet by mouth daily with breakfast. glimepiride (AMARYL) 2 mg tablet Take 2 mg by mouth daily with breakfast. No current facility-administer ed medications for this visit. Social History Tobacco Use Smoking status: Never Smokeless tobacco: Never Vaping Use Vaping Use: Never used Alcohol Use: Not on file Tobacco Use: Never History reviewed. No pertinent family history. Review of Systems Musculoskeletal: This patient fell into a drain he has multiple areas of ecchymosis and abrasions on the right pelvis and iliac crest and down onto the right hip but no true hip pain patient has the laceration on the simeon on the left with tib-fib tenderness on the left and he also has pain in the right elbow. He has a history of degenerative arthritis and changes in the right elbow from the past. Skin: Laceration is noted on the left simeon it is vertical laceration approximately 3 to 4 cm. Its been open for 2 days there is no way I can repair it at this point. This is going to have to heal by secondary intention. BP 131/77 Pulse 73 Temp 98.6 Resp 16 Wt 253 lb (114.8kg) SpO2 97% Physical Exam Vitals and nursing note reviewed. Constitutional: Appearance: Normal appearance. HENT: Head: Normocephalic and atraumatic. Cardiovascular: Rate and Rhythm: Normal rate and regular rhythm. Pulses: Normal pulses. Heart sounds: Normal heart sounds. Pulmonary: Effort: Pulmonary effort is normal. Breath sounds: Normal breath sounds. Abdominal: Palpations: Abdomen is soft. Musculoskeletal: Cervical back: Normal range of motion. Comments: This patient has multiple areas of ecchymosis and some abrasions particularly around the right side of the waist at the iliac crest on the right and down onto the right hip. There is no pain in the true hip itself. The patient also has swelling of that right elbow with a decreased range of motion. He does have a history of arthritis there. And has had recommendations for surgery for that elbow prior to this. Regarding his tib-fib on the left the patient does have some tenderness to palpation around that laceration. The laceration is going to have to close by secondary intention at this point. [place] have to come up with a routine for cleaning. Skin: General: Skin is warm and dry. Findings: Bruising present. Comments: Laceration left simeon Neurological: General: No focal deficit present. Mental Status: He is alert and oriented to person, place, and time. Psychiatric: Mood and Affect: Mood normal. Behavior: Behavior normal. ASSESSMENT/PLAN: 1. Multiple contusions of trunk, initial encounter - ICD9: 922.8, ICD10: S20.20XA (primary diagnosis) - XR PELVIS 2V INLET/OUTLET 2. Multiple leg contusions, left, initial encounter - ICD9: 924.4, ICD10: S80.12XA - XR TIBIA FIBULA 2V AP/LAT LEFT 3. Contusion of elbow and forearm, right, initial encounter - ICD9: 923.10, ICD10: S50.11XA - XR ELBOW SPECIAL VIEWS AP/LAT/OTHER RIGHT Susie Chambers, DO 04/06/2022 10:28 AM Signed CONTUSIONS GENERAL INFORMATION: A contusion, or bruise, is caused by an injury that does not break the skin. Bleeding under the skin causes it to look black and blue. It may take 2 or 3 weeks for the bruising to disappear. INSTRUCTIONS: 1. You may continue your normal daily activities as tolerated. Rest the injured area as much as possible. 2. Apply ice to the injury for 15 minutes each hour (while awake) for the first two days. Put the ice in a plastic bag and place a thin towel between the bag of ice and your skin. 3. After the first 1 to 2 days, you may apply heat to the injury to help relieve pain. You may use a warm heating pad, whirlpool bath, or warm moist towels for 15-20 minutes every hour (while awake) for 4 (more content not included)... Normal [facility] XR ELBOW 3V AP/LAT/OTHER RTo n 04-06-2022 XR ELBOW 3V AP/LAT/OTHER RT * * *Final Report* * * DATE OF EXAM: Apr 06 2022 11:21AM [id number] - XR ELBOW 3V AP/LAT/OTHER RT / PROCEDURE REASON: Contusion of elbow and forearm, right, initial encounter * * * * Physician Interpretation * * * * XR ELBOW 3V AP/LAT/OTHER RT, XR TIBIA FIBULA 2V AP/LAT LT Ordering Physician: SUSIE CHAMBERS RIGHT ELBOW 4 VIEWS Clinical Statement: Contusion. Status post injury. FINDINGS: No acute fracture or dislocation identified. The osseous structures are intact. No joint effusion. Moderate degenerative change. IMPRESSION: Moderate degenerative change. No acute osseous abnormality. LEFT TIBIA AND FIBULA 2 VIEWS: INDICATION: Pain status post fall. FINDINGS: No acute fracture or dislocation. The osseous structures are intact. Partial visualization of total knee arthroplasty. 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[employer] Transcribe Date/Time: Apr 07 2022 7:14A Dictated by : SOHAIL LAWRENCE MD This examination was interpreted and the report reviewed and electronically signed by: SOHAIL LAWRENCE MD on Apr 07 2022 7:16AM EST [id number] [id number] [facility] XR PELVIS 1V APon 04-06-2022 XR PELVIS 1V AP * * *Final Report* * * DATE OF EXAM: Apr 06 2022 11:21AM [id number] - XR PELVIS 1V AP / PROCEDURE REASON: Multiple contusions of trunk, initial encounter * * * * Physician Interpretation * * * * AP PELVIS: Clinical Statement: Multiple contusions of trunk, initial encounter. Comparison: None. FINDINGS: A single AP view of the pelvis was obtained. The hip joints are intact with minor degenerative changes noted. Mild degenerative sclerosis at the pubic symphysis. The SI joints are symmetric, normally approximated. The pelvic ring is intact. No fracture identified. IMPRESSION: Mild degenerative changes as above. No acute osseous abnormality. 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[employer] Transcribe Date/Time: Apr 07 2022 11:29A Dictated by : ELIF KIRK MD This examination was interpreted and the report reviewed and electronically signed by: ELIF KIRK MD on Apr 07 2022 11:30AM EST [id number] [facility] XR TIBIA FIBULA 2V AP/LAT LT on 04-06-2022 XR TIBIA FIBULA 2V AP/LAT LT * * *Final Report* * * DATE OF EXAM: Apr 06 2022 11:21AM [id number] - XR TIBIA FIBULA 2V AP/LAT LT / PROCEDURE REASON: Multiple leg contusions, left, initial encounter * * * * Physician Interpretation * * * * XR ELBOW 3V AP/LAT/OTHER RT, XR TIBIA FIBULA 2V AP/LAT LT Ordering Physician: SUSIE CHAMBERS RIGHT ELBOW 4 VIEWS Clinical Statement: Contusion. Status post injury. FINDINGS: No acute fracture or dislocation identified. The osseous structures are intact. No joint effusion. Moderate degenerative change. IMPRESSION: Moderate degenerative change. No acute osseous abnormality. LEFT TIBIA AND FIBULA 2 VIEWS: INDICATION: Pain status post fall. FINDINGS: No acute fracture or dislocation. The osseous structures are intact. Partial visualization of total knee arthroplasty. 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 Date/Time: Apr 07 2022 7:14A Dictated by : SOHAIL LAWRENCE MD This examination was interpreted and the report reviewed and electronically signed by: SOHAIL LAWRENCE MD on Apr 07 2022 7:16AM EST [id number] Normal [facility] LABORATORYOrdered By: Vilma Golden on 04-05-2022 Albumin BCP dye [Mass/Vol] 3.7 G/dL Invalid Interpretation Code 3.4 - 4.8 G/dL AO ADM SS Albumin/Globulin [Mass ratio] 1.1 {ratio} Invalid Interpretation Code 1.1 - 2.5 ratio AO ADM SS ALP [Catalytic activity/Vol] 69 U/L Invalid Interpretation Code 40 - 135 U/L AO ADM SS ALT With P-5'-P [Catalytic activity/Vol] 41 U/L Invalid Interpretation Code 16 - 63 U/L AO ADM SS AST With P-5'-P [Catalytic activity/Vol] 21 U/L Invalid Interpretation Code 10 - 40 U/L AO ADM SS Bilirubin [Mass/Vol] 0.8 mg/dL Invalid Interpretation Code 0.2 - 1.0 mg/dL AO ADM SS Calcium [Mass/Vol] 8.8 mg/dL Invalid Interpretation Code 8.4 - 10.2 mg/dL AO ADM SS Chloride [Moles/Vol] 103 mmol/L Invalid Interpretation Code 98 - 107 mmol/L AO ADM SS Cholesterol [Mass/Vol] 187 mg/dL Invalid Interpretation Code 0 - 200 mg/dL AO ADM SS Cholesterol in HDL [Mass/Vol] 53 mg/dL Invalid Interpretation Code 40 - 60 mg/dL AO ADM SS Cholesterol in LDL [Mass/Vol] 114 mg/dL Invalid Interpretation Code 0 - 130 mg/dL AO ADM SS CO2 [Moles/Vol] 28 mmol/L Invalid Interpretation Code 23 - 31 mmol/L AO ADM SS Creatinine [Mass/Vol] 1.13 mg/dL Invalid Interpretation Code 0.70 - 1.30 mg/dL AO ADM SS Electrolyte Balance 6.0 mEq/L Invalid Interpretation Code 4.0 - 15.0 mEq/L AO ADM SS Globulin 3.3 G/dL Invalid Interpretation Code AO ADM SS Glucose [Mass/Vol] 113 mg/dL Invalid Interpretation Code 80 - 115 mg/dL AO ADM SS HbA1c (Bld) [Mass fraction] 6.1 % Invalid Interpretation Code 4.3 - 6.4 % AO ADM SS Potassium [Moles/Vol] 4.7 mmol/L Invalid Interpretation Code 3.5 - 5.1 mmol/L AO ADM SS Protein [Mass/Vol] 7.0 G/dL Invalid Interpretation Code 6.4 - 8.2 G/dL AO ADM SS Sodium [Moles/Vol] 137 mmol/L Invalid Interpretation Code 136 - 145 mmol/L AO ADM SS Triglyceride [Mass/Vol] 102 mg/dL Invalid Interpretation Code 0 - 150 mg/dL AO ADM SS Urea nitrogen [Mass/Vol] 29 mg/dL Invalid Interpretation Code 7 - 18 mg/dL AO ADM SS Urea nitrogen/Creatinine [Mass ratio] 26 ratio Invalid Interpretation Code 7 - 27 ratio AO ADM SS LABORATORYOrdered By: SYSTEM SYSTEM on 04-05-2022 GFR 80 ml/min/1.73sqm Invalid Interpretation Code AO Chemistry S GFR Non- 66 ml/min/1.73sqm Invalid Interpretation Code AO Chemistry S CT CHEST WO IVCONon 03-31-[address] CHEST WO IVCON * * *Final Report* * * DATE OF EXAM: Mar 31 2022 4:45PM [facility] [place] CHEST WO IVCON / PROCEDURE REASON: 1 YEAR FOLLOW UP LUNG NODULE * * * * Physician Interpretation * * * * EXAMINATION: CHEST CT WITHOUT CONTRAST CLINICAL HISTORY: One-year follow-up lung nodule Technique: Spiral CT acquisition of the chest from the thoracic inlet to the upper abdomen without contrast. MQ: [id number] CT Radiation dose: Integrated Dose-length product (DLP) for this visit = 407.56 mGy*cm CT Dose Reduction Employed: Automated exposure control(AEC) and iterative recon Comparison: None RESULT: Limitations: None. Lines, tubes, and devices: None. Lung parenchyma and airways: No consolidation. There is a 2 mm noncalcified nodule in the right upper lobe. No other nodules are identified. The central airways are patent. Pleural space: No pleural effusion. No pleural thickening. Lower neck, lymph nodes, and mediastinum: The imaged thyroid gland is normal. No lymphadenopathy in the supraclavicular, axillary, mediastinal, or hilar regions. Heart, pericardium, and thoracic vessels: The thoracic aorta and main pulmonary artery are normal in caliber. The cardiac chambers are normal in size. There are moderate coronary artery calcifications.. No pericardial effusion or thickening. Bones and soft tissues: No destructive bone lesion. Chest wall is unremarkable. There is bilateral gynecomastia. Upper abdomen: No abnormality in the imaged upper abdomen. Golf Sales Manager (topogram) images: Normal IMPRESSION: There is a 2 mm right upper lobe nodule. No other pulmonary nodules are identified. 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[employer] Transcribe Date/Time: Apr 02 2022 2:10P Dictated by : CHRISTIAN RODRIGUEZ MD This examination was interpreted and the report reviewed and electronically signed by: CHRISTIAN RODRIGUEZ MD on Apr 02 2022 2:17PM EST [id number] Normal [facility] Vital Signs Date Time Vital Sign Value Performing Clinician Facility 05-30-2022 18:04-0400 Body temperature 98.42 [degF] JAMIL MORA MD [facility] 05-30-2022 18:04-0400 Diastolic blood pressure 84 mm[Hg] JAMIL MORA MD [facility] 05-30-2022 18:04-0400 Heart rate 66 /min JAMIL MORA MD [facility] 05-30-2022 18:04-0400 Respiratory rate 18 /min JAMIL MORA MD [facility] 05-30-2022 18:04-0400 Systolic blood pressure 181 mm[Hg] JAMIL MORA MD [facility] 04-06-2022 09:28-0400 Body temperature 98.6 [degF] Susie Chambers DO Work Phone: [facility] 04-06-2022 09:28-0400 Body weight 114.76 kg Suise Chambers DO Work Phone: [facility] 04-06-2022 09:28-0400 Diastolic blood pressure 77 mm[Hg] Susie Chambers DO Work Phone: [facility] 04-06-2022 09:28-0400 Heart rate 73 /min Susie Chambers DO Work Phone: [facility] 04-06-2022 09:28-0400 Respiratory rate 16 /min Susie Chambers DO Work Phone: [facility] 04-06-2022 09:28-0400 SaO2% (BldA) [Mass fraction] 97 % Susie Chambers DO Work Phone: [facility] 04-06-2022 09:28-0400 Systolic blood pressure 131 mm[Hg] Susie Chambers DO Work Phone: [facility] Encounters Encounter Date Encounter Type Care Provider Facility Start: 04-24-2025 ambulatory Camilo Royal Facility: [facility] Start: 04-01-2025 End: 04-01-2025 ambulatory TAMIKO SARKAR MD Facility:[facility] Start: 04-01-2025 End: 04-01-2025 Patient encounter procedure TAMIKO SARKAR MD [facility] Start: 01-12-2025 End: 02-22-[address] CAMILO ROYAL MD Facility:[facility] Start: 01-12-2025 End: 02-22-[address] CAMILO ROYAL MD [facility] Start: 12-31-2024 End: 12-31-2024 ambulatory YVONNE BLAKE PA-C Facility:[facility] Start: 12-31-2024 End: 12-31-2024 Patient encounter procedure YVONNE BLAKE PA-C [facility] Start: 09-17-2024 End: 09-17-2024 ambulatory SOLOMON LUIS ALFREDO VISUAL [employer] DEVELOPER[employer] IN WORKER Facility:[facility] Start: 09-17-2024 End: 09-17-2024 Patient encounter procedure TAMIKO SARKAR MD [facility] Start: 07-01-2024 End: 07-01-2024 ambulatory SOLOMON LUIS ALFREDO VISUAL BASIC [employer] DEVELOPER-FE[employer] IN WORKER Facility:[facility] Start: 07-01-2024 End: 07-01-2024 Patient encounter procedure JHON CANADA VISUAL BASIC [employer] DEVELOPER-FEED IN WORKER [facility] Start: 06-25-2024 End: 06-25-2024 ambulatory JOSE L MCGUIRE DO Facility:[facility] Start: 06-25-2024 End: 06-25-2024 Patient encounter procedure TAMIKO SARKAR MD [facility] Start: 06-20-2024 End: 06-20-2024 ambulatory JOHN CANADA VISUAL BASIC [employer] DEVELOPER-FEED IN WORKER Facility:[facility] Start: 06-20-2024 End: 06-20-2024 Patient encounter procedure JOHN CANADA VISUAL BASIC [employer] DEVELOPER-FEED IN WORKER [facility] Start: 04-01-2024 End: 04-01-2024 ambulatory JOHN CANADA Facility:A Start: 04-01-2024 End: 04-01-2024 Patient encounter procedure JOHN CANADA VISUAL BASIC .NET DEVELOPER-FEED IN WORKER [facility] Start: 03-18-2024 End: 03-18-2024 ambulatory TAMIKO SARKAR MD Facility:B Start: 03-18-2024 End: 03-18-2024 Patient encounter procedure TAMIKO SARKAR MD [facility] Start: 03-05-2024 End: 03-05-2024 ambulatory TAMIKO SARKAR MD Facility:B Start: 03-05-2024 End: 03-05-2024 Patient encounter procedure TAMIKO SARKAR MD [facility] Start: 12-05-2023 End: 12-05-2023 ambulatory TAMIKO SARKAR MD Facility:B Start: 08-21-2023 End: 08-21-2023 ambulatory TAMIKO SARKAR MD Facility:B Start: 08-21-2023 End: 08-21-2023 Patient encounter procedure TAMIKO SARKAR MD [facility] Start: 08-18-2023 End: 10-29-2023 ambulatory LEONCIO CAUSEY PA-C Facility:B Start: 07-28-2023 End: 07-28-2023 ambulatory LEONCIO CAUSEY PA-C Facility:B Start: 07-28-2023 End: 07-28-2023 Patient encounter procedure LEONCIO CAUSEY PA-C [facility] Start: 04-18-2023 End: 04-18-2023 ambulatory TAMIKO SARKAR MD Facility:B Start: 12-13-2022 End: 12-13-2022 Patient encounter procedure TAMIKO SARKAR MD [facility] Start: 08-09-2022 End: 08-09-2022 Patient encounter procedure TAMIKO SARKAR MD [facility] Start: 06-11-2022 End: 09-09-2022 Physical therapy management JOSE L SHAYLA DO [facility] Start: 06-05-2022 End: 06-05-2022 Patient encounter procedure PADMAJA SMITH MD [facility] Start: 05-30-2022 End: 05-30-2022 Emergency department patient visit JAMIL MORA MD [facility] Start: 04-06-2022 End: 04-06-2022 Subsequent hospital visit by physician Xr [facility] Work Phone: [facility] [employer] Comment on above: Contusion of elbow a nd forearm, right, initial encounter [S50.11XA] Start: 04-06-2022 End: 04-06-2022 Patient encounter procedure Susie Candi Chambers DO Work Phone: [facility] Comment on above: Multiple contusions of trunk, initial encounter (Primary Dx); Multiple leg contusions, left, initial encounter; Contusion of elbow and forearm, right, initial encounter Start: 04-05-2022 End: 04-05-2022 Patient encounter procedure TAMIKO SARKAR MD [facility] Start: 03-31-2022 End: 03-31-2022 Subsequent hospital visit by physician Ct Mobile [facility] Work Phone: [facility] Comment on above: Other nonspecific ab normal finding of lung field [R91.8] Start: 02-14-2022 End: 02-14-2022 Patient encounter procedure CRISTÓBAL CHILDS DO [facility] Procedures Date Procedure Procedure Detail Performing Clinician Start: 08-18-2023 End: 10-29-2023 Occupational therapy LEONCIO CAUSEY PA-C Start: 04-06-2022 Adult depression scr eening assessment Susie Chambers DO Work Phone: Start: 12-31-2016 Arthroplasty of knee SC DONELL CHILDS DO Comment on above: right Start: 12-24-2015 Arthroplasty of knee SC DONELL HCILDS DO Comment on above: left Start: 12-16-2010 Umbilical hernia (disorder) CRISTÓBAL CHILDS DO Comment on above: X2 Start: 08-17-2009 Colonoscopy CRISTÓBAL ROMAINE INS DO Arthroscopy of shoulder SCOT Alessandro CHILDS DO Comment on above: LISBETH Colonoscopy CRISTÓBAL CHILDS D O Repair of musculoten dinous cuff of shoulder CRISTÓBAL CHILDS DO Comment on above: left and right Plan of Treatment Date Care Activity Detail Author Start: 04-06-2023 Adult depression screening assessment DEPRESSION SCREENING [facility] Start: 04-17-2022 Influenza vaccination INFLUENZA (#1) [facility] Start: 07-03-2021 COVID-19 VACCINE (3 - Booster for Moderna series) COVID-19 VACCINE (3 - Booster for Moderna series) [facility] Start: 10-30-2014 PROSTATE CANCER SCREENING DISCUSSION PROSTATE CANCER SCREENING DISCUSSION [facility] Start: 10-30-2009 SHINGRIX VACCINE (1 of 2) SHINGRIX VACCINE (1 of 2) [facility] Start: 10-30-2004 COLOGUARD (FIT-DNA) COLOGUARD (FIT-D NA) [facility] Start: 10-30-2004 Colonoscopy COLONOSCOPY [facility] Start: 10-30-2004 COLORECTAL CANCER SCREENING COLORECTAL CANCER SCREENING [facility] Start: 10-30-[address] COLONOGRAPHY [facility] Start: 10-30-2004 DIABETES SCREEN DIABETES SCREEN [facility] Start: 10-30-2004 FECAL OCCULT BLOOD FECAL OCCULT BLOO D [facility] Start: 10-30-2004 SIGMOIDOSCOPY SIGMOIDOSCOPY [facility] Start: 10-30-1994 LIPID SCREEN LIPID SCREEN [facility] Start: 10-30-1978 Urine microalbumin profile DTAP,TDAP,TD (1 - Tdap) [facility] Start: 10-30-1977 HEPATITIS C SCREENING HEPATITIS C SC KIRBY [facility] Start: 10-30-1977 HIV SCREENING HIV SCREENING [facility] Start: 1971 Adult depression screening assessment DEPRESSION SCREENING [facility] End: 05-06-2023 Radiologic examination pelvis 1/2 views XR PELVIS 2V INLET/OUTLET Radiology Routine Multiple contusions of trunk, initial encounter 1 Occurrences starting 04/06/2022 until 05/06/2023 [facility] Work Phone: Comment on above: 1 Occurrences starti ng 04/06/2022 until 05/06/2023 End: 04-06-2022 Radiologic examination pelvis 1/2 views [facility] Work Phone: Comment on above: 1 Occurrences starti ng 04/06/2022 until 04/06/2022 XR ELBOW SPECIAL VIE WS AP/LAT/OTHER RIGHT XR ELBOW SPECIAL VIEWS AP/LAT/OTHER RIGHT Radiology Routine Contusion of elbow and forearm, right, initial encounter 04/06/2022 11:21 AM EDT [facility] Work Phone: End: 05-06-2023 XR TIBIA FIBULA 2V AP/LAT LEFT XR TIBIA FIBULA 2V AP/LAT LEFT Radiology Routine Multiple leg contusions, left, initial encounter 1 Occurrences starting 04/06/2022 until 05/06/2023 [facility] Work Phone: Comment on above: 1 Occurrences starti ng 04/06/2022 until 05/06/2023 End: 04-06-2022 XR TIBIA FIBULA 2V AP/LAT LEFT [facility] Work Phone: Comment on above: 1 Occurrences starti ng 04/06/2022 until 04/06/2022 Immunizations Immunization Date Immunization Notes Care Provider Hemant mobley 06-26-2021 influenza virus vaccine, unspecified formulation CRISTÓBAL CHILDS DO [facility] 06-26-2021 zoster vaccine recombinant CRISTÓBAL CHILDS DO [facility] 01-31-2021 SARS-CoV-2 (COVID-19 ) mRNA-1273 vaccine CRISTÓBAL CHILDS DO [facility] 01-03-2021 SARS-CoV-2 (COVID-19 ) mRNA-1273 vaccine CRISTÓBAL CHILDS DO [facility] 02-10-2020 tetanus toxoid, redu jeanie diphtheria toxoid, and acellular pertussis vaccine, adsorbed; Translations: [Boostrix (Tdap)] CRISTÓBAL CHILDS DO [facility] 07-19-2019 influenza virus vaccine, unspecified formulation CRISTÓBAL GAVININS DO [facility] Comment on above: Result Comment: bernard mcmullen norman 05-17-2013 influenza virus vaccine, unspecified formulation CRISTÓBAL CHILDS DO [facility] Payers Date Payer Category Payer Self-pay 2024 Private Health Insurance [id number] 2023 Unknown [id number] 2021 Unknown [id number] 1959 Unknown [id number] 2.16.8 [id number] 1959 Unknown [id number] 2.16.8 [id number] 1959 Unknown [id number] 2.16.8 40.1.110669.3.579.2.627 1959 Unknown [id number] 2.16.8 40.1.431195.3.579.2.627 1959 Unknown [id number] 2.16.8 40.1.252698.3.579.2.627 1959 Unknown [id number] 2.16.8 40.1.544210.3.579.2.627 1959 Unknown [id number] 2.16.8 40.1.764362.3.579.2.627 1959 Unknown [id number] 2.16.8 40.1.027525.3.579.2.627 1959 Unknown [id number] 2.16.8 40.1.411068.3.579.2.7 1959 Unknown [id number] 2.16.8 40.1.519555.3.579.2.627 1959 Unknown [id number] 2.16. 840.1.330655.3.579.2.627 1959 Unknown [id number] 2.16. 840.1.758006.3.579.2.627 1959 Unknown [id number] 2.16.8 40.1.981539.3.579.2.627 1959 Unknown [id number] 2.16.8 40.1.091302.3.579.2.627 1959 Unknown [id number] 2.16.8 40.1.162775.3.579.2.627 1959 Unknown [id number] 2.16.8 40.1.390555.3.579.2.627 Unknown [id number] 2.16.8 40.1.305269.3.579.2.462 Social History Date Type Detail Facility Start: 07-04-2019 Tobacco smoking status Ex-smoker (fi nding) [place] Sex [facility]igned [facility] Start: 1960 [facility] Start: 03-21-2022 End: 04-06-2022 Exposure to SARS-CoV-2 (event) Not sure [facility] Start: 04-06-2022 Tobacco smoking stat us NHIS Never smoked tobacco [facility] Start: 04-06-2022 Tobacco use and exposure Smoke less tobacco non-user [facility] Sexual Orientation Angela marai [facility] Start: 02-09-2019 Sex Male (finding) [place] Functional Status Date Assessment Result Facility 06-11-2022 Functional Status Objective: Cardiovascular Screen: BP:100/60 66 HR: BPM O2 saT: 92% Observation: no obvious muscle deformities or bruising present. Cervical AROM: Flex: Major loss Ext: NT Retraction: NT , SB: NT: Rotation: R: major loss L: major loss Thoracic AROM: Flex: no loss Ext: mod loss Rotation: R: mod loss L:mod loss Palpation: No central spine tenderness. Special Tests: Sharp Anna: - , Distraction: NT, Spurlings:NT Neural Tension: Sensation: Grossly intact and symmetrical to light touch bilat UE's Reflexes1+ bilat biceps and triceps, Hoffmans reflex - bilate, inverted supinator: - bilat [facility] 05-30-2022 Functional Status Standard Safet y ID band on, Allergy Band on, Call device within reach, Bed in low position, Wheels locked, Upper/Half-Length side-rails up, Bedside Cart Locked, Visitor at bedside, Safety level maintained [facility] Mental Status Date Assessment Result Facility 05-30-2022 Mental Status Oriented x [facility] Clinical Notes 02-24-2022 to 03-21-2025 Rajendra Steiner LPN - 04/06/2022 10:36 AM Ekaterina Chambers DO - 04/06/2022 10:21 AM EDTPatiRT Cherie(R) - 04/06/2022 10:00 AM EDTRadiologyRadiologyRadiology Note Date & Type Note Facility 03-21-2025 Evaluation + Plan note Future Scheduled TestsProstate Specific Antigen 07/05/25yroid Stimulating Hormone 03/21/25A1C Hemoglobin 03/21/25A1C Hemoglobin 07/05/25Lipid Profile 03/21/25Lipid Profile 07/05/25Albumin/Creatinine Ratio, Random Urine 03/21/25Albumin/Creatinine Ratio, Random Urine 07/05/25Complete Metabolic Panel 03/21/25Complete Metabolic Panel 07/05/25 [facility] 05-30-2022 Hospital Discharge instructions Patient Education 05/30/2022 18:15:56 NECK SPRAIN/STRAIN Neck Sprain or Strain A sudden force that causes turning or bending of the neck (such as in a car accident) can stretch or tear muscles (strain) and ligaments (sprain) and cause neck pain. Sometimes neck pain occurs after a simple awkward movement. In either case, muscle spasm is commonly present and contributes to the pain. Unless you had a forceful physical injury (for example, a car accident or fall), X-rays are usually not ordered for the initial evaluation of neck pain. If pain continues and dose not respond to medical treatment, X-rays and other tests may be performed at a later time. Home care The following guidelines will help you care for your injury at home: You may feel more soreness and spasm the first few days after the injury. Reduce your activity level until symptoms begin to improve. When lying down, use a comfortable pillow that supports the head and keeps the spine in a neutral position. The position of the head should not be tilted forward or backward. Use ice packs (ice in a plastic bag, wrapped in a towel) to treat acute pain. Apply for 20 minutes every 2 4 hours during the first two days. Then, begin local heat (hot shower, hot bath or heating pad) and massage to reduce muscle spasm. Some patients feel best alternating hot and cold treatments, or just staying with one method only. Do what feels the best to you and gives the most relief. You may use acetaminophen or ibuprofen to control pain, unless another pain medicine was prescribed. If you have chronic liver or kidney disease or ever had a stomach ulcer or GI bleeding, talk with your doctor before using these medicines. Follow-up care Follow up with your physician or this facility if your symptoms do not show signs of improvement. Physical therapy may be needed. If you had X-rays today, they didn t show any broken bones, breaks, or fractures. Sometimes fractures don t show up on the first X-ray. Bruises and sprains can sometimes hurt as much as a fracture. These injuries can take time to heal completely. If your symptoms don t improve or they get worse, talk with your doctor. You may need a repeat X-ray. When to seek medical advice Call your health care provider right away if any of these occur: Pain becomes worse or spreads into your arms Weakness or numbness in one or both arms [id number] [employer]. [address] [place] [address]. All rights reserved. This information is not intended as a substitute for professional medical care. Always follow your healthcare professional's instructions. Follow Up Care 05/30/2022 18:00:21 With:JOSE L MCGUIRE DO Address: [address] [place] [address] [phone] When:2-4 days With:Go to emergency room if symptoms worsen Address:Unknown When:2-4 days [facility] 05-30-2022 Emergency department Discharge summary Discharge Instructions Thank you for allowing [facility] to assist you with your healthcare needs. The following is important discharge information regarding your hospital visit. Diagnosis from Today's Visit Cervical strain Neck pain What to Do Next Instructions from Your Care Team No qualifying data available. Post Acute Orders No qualifying data available. You Need to Schedule the Following Appointments Follow Up with JOSE L MCGUIRE DO When Within 2-4 days Where: [address] [place] [phone] Follow Up with Go to emergency room if symptoms worsen When Within 2-4 days Allergies penicillin (Rash) Medications Please ask your primary doctor or pharmacist before taking any other medication not listed, including over the counter drugs, herbal medications, vitamins and or supplements as they may interact with your home medications. What How Much When Why Instructions Last Dose New cyclobenzaprine (Flexeril use cyclobenzaprine ) 10 Milligram by mouth Three (3) times a day Cervical strain Printed Prescription New lidocaine topical (lidocaine 5% topical patch) 1 patch(es) Transdermal Every day Cervical strain Printed Prescription New naproxen (naproxen 500 mg oral tablet) 1 tab(s) by mouth Two (2) times a day Cervical strain Printed Prescription Unchanged calcium-vitamin D (calcium-vitamin D 600 mg-200 intl units (5 mcg) oral capsule) 1 cap by mouth Two (2) times a day Unchanged DME (DME MISCellaneous) See instructions Carpal tunnel syndrome Please provide 1 pair of bilateral wrist/ hand splint for carpal tunnel. Size to fit. Diagnosis: g56.00 On at at bedtime off in a.m. also may wear for repetitive activities. Unchanged DME (Pen needles 4 mm) See instructions Diabetes mellitus Use as directed weekly Unchanged empagliflozin-metformin (Synjardy XR 12.5 mg-1000 mg oral tablet, extended release) 2 tab(s) by mouth Once a day Unchanged lisinopril (lisinopril 20 mg oral tablet) 1 tab(s) by mouth Every day Unchanged niacin (niacin 500 mg oral tablet) by mouth Once a day Unchanged semaglutide (Ozempic (1 mg dose) 2 mg/ 1.5 mL subcutaneous solution) 1 Milligram Subcutaneous Every week Unchanged tadalafil (Cialis 20 mg oral tablet) 1 tab(s) by mouth Once a day ED (erectile dysfunction) Take 1 hour prior to sexual activity Please take this list to your next doctor s visit. Bring all medications you take, including over the counter medications, herbals and other supplements with you to your doctor s visit. Patients and families are reminded to discard old lists and to update any records with all medication providers or retail pharmacies. Education Materials Neck Sprain or Strain A sudden force that causes turning or bending of the neck (such as in a car accident) can stretch or tear muscles (strain) and ligaments (sprain) and cause neck pain. Sometimes neck pain occurs after a simple awkward movement. In either case, muscle spasm is commonly present and contributes to the pain. Unless you had a forceful physical injury (for example, a car accident or fall), X-rays are usually not ordered for the initial evaluation of neck pain. If pain continues and dose not respond to medical treatment, X-rays and other tests may be performed at a later time. Home care The following guidelines will help you care for your injury at home: You may feel more soreness and spasm the first few days after the injury. Reduce your activity level until symptoms begin to improve. When lying down, use a comfortable pillow that supports the head and keeps the spine in a neutral position. The position of the head should not be tilted forward or backward. Use ice packs (ice in a plastic bag, wrapped in a towel) to treat acute pain. Apply for 20 minutes every 2 4 hours during the first two days. Then, begin local heat (hot shower, hot bath or heating pad) and massage to reduce muscle spasm. Some patients feel best alternating hot and cold treatments, or just staying with one method only. Do what feels the best to you and gives the most relief. You may use acetaminophen or ibuprofen to control pain, unless another pain medicine was prescribed. If you have chronic liver or kidney disease or ever had a stomach ulcer or GI bleeding, talk with your doctor before using these medicines. Follow-up care Follow up with your physician or this facility if your symptoms do not show signs of improvement. Physical therapy may be needed. If you had X-rays today, they didn t show any broken bones, breaks, or fractures. Sometimes fractures don t show up on the first X-ray. Bruises and sprains can sometimes hurt as much as a fracture. These injuries can take time to heal completely. If your symptoms don t improve or they get worse, talk with your doctor. You may need a repeat X-ray. When to seek medical advice Call your health care provider right away if any of these occur: Pain becomes worse or spreads into your arms Weakness or numbness in one or both arms [phone] [employer]. [address] [place] [address]. All rights reserved. This information is not intended as a substitute for professional medical care. Always follow your healthcare professional's instructions. Additional Information VACCINATE! IT SAVES LIVES! Members of the community who have not yet received the COVID-19 vaccine and would like to receive it can visit one of [facility] vaccine clinics. There are many vaccine clinic locations within the [facility]. For locations and available times, please visit [email or web address]. It is important to note that some COVID mobile vaccine clinics are held outdoors and may be canceled in rainy or stormy conditions. To learn more about pediatric vaccinations (ages 5-11), we invite you to visit the [facility] webpage. [email or web address] [email or web address] To learn more about the COVID-19 vaccine, we invite you to visit the [facility] website for a list of frequently asked questions. [email or web address] [facility] Patient Portal Access Instructions: Stay connected with your healthcare team and access your personal medical information anytime with the [facility] Patient Portal. If you would like a full copy of your medical records please contact the [facility] Department Thursday through Thursday between 8a.m. and 4:30p.m. Please follow the directions below to access the portal: 1.Access the email account you provided upon registration to the [facility].2.Look for an invitation email from [place].3.Open the email and access the invitation link: Accept Invitation to [facility]4.Fill in the required calderon to create your account. Sign into [email or web address] with your username and password that you created in the above steps to stay up to date. You can then view a summary of results, a summary of your visits, and the ability to download your summaries to your computer or send the information securely to a physician. Remember that your healthcare information is confidential, so carefully consider who you will allow to register on the [facility] Patient Portal for access to your information. You can also access the [facility] Patient Portal on the [facility] [employer]zy. Simply click on Health Records under Health Data and then click on the [employer] logo. HOW TO SAFELY DISPOSE OF PRESCRIPTION MEDICATIONS Please use one of the following methods to safely dispose of your unused medications. 1.Use a drug disposal kit: the drug disposal pouch allows you to safely discard your old and unused drugs. Ask your nurse to give you one when you are discharged.2.Visit a local take-back location: Many local pharmacies and police departments have programs that collect old and unwanted prescription drugs. Call your local pharmacy or go to http://bit.Streamweaver/2I7Kt0z to find one close to you.3.Make use of household items: Use cat litter or old coffee grounds to dispose medications if other options are not available. Mix your drugs with these household products, seal them in an airtight container and throw it into the garbage. Call [facility]: [phone] to be sure your drugs can be disposed of in this way. Some medicines may require a different approach.4.Never flush your medications down the toilet. IF YOU HAVE BEEN PRESCRIBED AN OPIOIDS FOR PAIN If you have been prescribed an opioid (such as hydrocodone, oxycodone or morphine), it is critical to understand the possible side effects and risks of opioid pain medications. Even when taken as directed, opioids can have several side effects including: Tolerance, meaning you might need to take more of a medication for the same pain relief. Nausea, vomiting and/or constipation. Sleepiness, dizziness, dry mouth, confusion, depression or itching. Physical dependence, meaning you have withdrawal symptoms when a medication is stopped ? this can develop within a few days. KNOW YOUR RESPONSIBILITIES It is important to know exactly how much and how often to take the opioid pain medications you are prescribed. Never take opioids in higher amounts or more often than prescribed. Do not combine opioids with alcohol or other drugs that cause drowsiness, such as benzodiazepines, also known as benzos, including diazepam and alprazolam, muscle relaxants or sleep aids. Never sell or share prescription opioids. This is illegal. Store opioids in a secure place and out of reach of others (including children, family, friends and visitors). The last page(s) of this document has been signed and retained as a CHART COPY Signatures Patient Education Materials NECK SPRAIN/STRAIN Medication Leaflets My discharge plan and instructions have been reviewed and explained to me and [facility] understand my current condition and have read and understand these discharge instructions. I have received a written copy of the plan/instructions. If I have questions, I am aware that I should contact my doctor. 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 Author Type: LICENSED NURSE Type: Progress Notes Filed: 04/06/2022 11:49 AM Note Text: Bacitracin and dry dressing applied to left simeon wound, patient tolerated well.Emelia Steiner LPN [facility] 04-06-2022 Note HNO ID: [id number] Author: Susie Chambers, DO Service: ? Author Type: Physician Type: Progress Notes Filed: 04/06/2022 11:49 AM Note Text: Tom Norwood is a 61 year old MALE who presents with Right Hip Pain (Fall into a drain at customers home--Thursday. Right hip pain, 2.0cm laceration on left simeon, right elbo pain----tetnus is up to date) HPI History reviewed. No pertinent past medical history. There is no problem list on file for this patient. Current Outpatient Medications Medication Sig Dispense Refill lisinopril (ZESTRIL, PRINIVIL) 20 mg tablet Take 20 mg by mouth once daily. metaxalone (SKELAXIN) 800 mg tablet take 1 tablet by mouth three times a day for 10 days OZEMPIC 1 mg/dose (4 mg/3 mL) pen injector inject 1 dose (1 MG) subcutaneously every week as directed empagliflozin-metFORMIN (SYNJARDY) 12.5-500 mg tab Take 1 tablet by mouth daily with breakfast. glimepiride (AMARYL) 2 mg tablet Take 2 mg by mouth daily with breakfast. No current facility-administered medications for this visit. Social History Tobacco Use Smoking status: Never Smokeless tobacco: Never Vaping Use Vaping Use: Never used Alcohol Use: Not on file Tobacco Use: Never History reviewed. No pertinent family history. Review of Systems Musculoskeletal: This patient fell into a drain he has multiple areas of ecchymosis and abrasions on the right pelvis and iliac crest and down onto the right hip but no true hip pain patient has the laceration on the simeon on the left with tib-fib tenderness on the left and he also has pain in the right elbow. He has a history of degenerative arthritis and changes in the right elbow from the past. Skin: Laceration is noted on the left simeon it is vertical laceration approximately 3 to 4 cm. Its been open for 2 days there is no way I can repair it at this point. This is going to have to heal by secondary intention. BP 131/77 Pulse 73 Temp 98.6 Resp 16 Wt 253 lb (114.8kg) SpO2 97% Physical Exam Vitals and nursing note reviewed. Constitutional: Appearance: Normal appearance. HENT: Head: Normocephalic and atraumatic. Cardiovascular: Rate and Rhythm: Normal rate and regular rhythm. Pulses: Normal pulses. Heart sounds: Normal heart sounds. Pulmonary: Effort: Pulmonary effort is normal. Breath sounds: Normal breath sounds. Abdominal: Palpations: Abdomen is soft. Musculoskeletal: Cervical back: Normal range of motion. Comments: This patient has multiple areas of ecchymosis and some abrasions particularly around the right side of the waist at the iliac crest on the right and down onto the right hip. There is no pain in the true hip itself. The patient also has swelling of that right elbow with a decreased range of motion. He does have a history of arthritis there. And has had recommendations for surgery for that elbow prior to this. Regarding his tib-fib on the left the patient does have some tenderness to palpation around that laceration. The laceration is going to have to close by secondary intention at this point. Ragona have to come up with a routine for cleaning. Skin: General: Skin is warm and dry. Findings: Bruising present. Comments: Laceration left simeon Neurological: General: No focal deficit present. Mental Status: He is alert and oriented to person, place, and time. Psychiatric: Mood and Affect: Mood normal. Behavior: Behavior normal. ASSESSMENT/PLAN: 1. Multiple contusions of trunk, initial encounter - ICD9: 922.8, ICD10: S20.20XA (primary diagnosis) - XR PELVIS 2V INLET/OUTLET 2. Multiple leg contusions, left, initial encounter - ICD9: 924.4, ICD10: S80.12XA - XR TIBIA FIBULA 2V AP/LAT LEFT 3. Contusion of elbow and forearm, right, initial encounter - ICD9: 923.10, ICD10: S50.11XA - XR ELBOW SPECIAL VIEWS AP/LAT/OTHER RIGHT Susie Chambers [facility] 04-06-2022 Note HNO ID: [id number] Author: RT Derrick(R) Service: ? Author Type: Technologist Type: Progress Notes Filed: 04/06/2022 11:26 AM Note Text: Radiology Service Progress Note PATIENT NAME: Tom Norwood DATE OF SERVICE: April 06, 2022 TIME: 11:25 AM PATIENT IDENTITY VERIFICATION COMPLETED USING TWO (2) IDENTIFIERS: Name and Date of confirmed by patient verbally. FALL SCREENING: Has the patient had 2 falls in the last year or 1 fall with injury or currently using an Ambulatory Assistive Device (Walker, Cane, Wheelchair, Crutches, etc.)? No PATIENT GENDER DATA: Male PATIENT RELEVANT IMPLANT DATA REVIEWED: Not Applicable RADIOLOGY DEPARTMENT: General X-ray: Exam(s) Completed: Pelvis X-Ray: Pelvis General AP Lower Extremity X-Ray(s): Tibia Fibula, Left Upper Extremity X-Ray(s): Elbow, right PERIPHERAL IV DATA: Not applicable SIGNED BY: RT Derrick(R) April 06, 2022 11:25 AM [facility] 04-06-2022 History of Present illness Narrative Bacitracin and dry dressing applied to left simeon wound, patient tolerated well.Emelia Steiner LPN Tom Norwood is a 61 year old MALE who presents with Right Hip Pain (Fall into a drain at customers home--Thursday. Right hip pain, 2.0cm laceration on left simeon, right elbo pain----tetnus is up to date) HPI History reviewed. No pertinent past medical history. There is no problem list on file for this patient. Current Outpatient Medications Medication Sig Dispense Refill lisinopril (ZESTRIL, PRINIVIL) 20 mg tablet Take 20 mg by mouth once daily. metaxalone (SKELAXIN) 800 mg tablet take 1 tablet by mouth three times a day for 10 days OZEMPIC 1 mg/dose (4 mg/3 mL) pen injector inject 1 dose (1 MG) subcutaneously every week as directed empagliflozin-metFORMIN (SYNJARDY) 12.5-500 mg tab Take 1 tablet by mouth daily with breakfast. glimepiride (AMARYL) 2 mg tablet Take 2 mg by mouth daily with breakfast. No current facility-administered medications for this visit. Social History Tobacco Use Smoking status: Never Smokeless tobacco: Never Vaping Use Vaping Use: Never used Alcohol Use: Not on file Tobacco Use: Never History reviewed. No pertinent family history. Review of Systems Musculoskeletal: This patient fell into a drain he has multiple areas of ecchymosis and abrasions on the right pelvis and iliac crest and down onto the right hip but no true hip pain patient has the laceration on the simeon on the left with tib-fib tenderness on the left and he also has pain in the right elbow. He has a history of degenerative arthritis and changes in the right elbow from the past. Skin: Laceration is noted on the left simeon it is vertical laceration approximately 3 to 4 cm. Its been open for 2 days there is no way I can repair it at this point. This is going to have to heal by secondary intention. BP 131/77 Pulse 73 Temp 98.6 Resp 16 Wt 253 lb (114.8kg) SpO2 97% Physical Exam Vitals and nursing note reviewed. Constitutional: Appearance: Normal appearance. HENT: Head: Normocephalic and atraumatic. Cardiovascular: Rate and Rhythm: Normal rate and regular rhythm. Pulses: Normal pulses. Heart sounds: Normal heart sounds. Pulmonary: Effort: Pulmonary effort is normal. Breath sounds: Normal breath sounds. Abdominal: Palpations: Abdomen is soft. Musculoskeletal: Cervical back: Normal range of motion. Comments: This patient has multiple areas of ecchymosis and some abrasions particularly around the right side of the waist at the iliac crest on the right and down onto the right hip. There is no pain in the true hip itself. The patient also has swelling of that right elbow with a decreased range of motion. He does have a history of arthritis there. And has had recommendations for surgery for that elbow prior to this. Regarding his tib-fib on the left the patient does have some tenderness to palpation around that laceration. The laceration is going to have to close by secondary intention at this point. Ragona have to come up with a routine for cleaning. Skin: General: Skin is warm and dry. Findings: Bruising present. Comments: Laceration left simeon Neurological: General: No focal deficit present. Mental Status: He is alert and oriented to person, place, and time. Psychiatric: Mood and Affect: Mood normal. Behavior: Behavior normal. ASSESSMENT/PLAN: 1. Multiple contusions of trunk, initial encounter - ICD9: 922.8, ICD10: S20.20XA (primary diagnosis) - XR PELVIS 2V INLET/OUTLET 2. Multiple leg contusions, left, initial encounter - ICD9: 924.4, ICD10: S80.12XA - XR TIBIA FIBULA 2V AP/LAT LEFT 3. Contusion of elbow and forearm, right, initial encounter - ICD9: 923.10, ICD10: S50.11XA - XR ELBOW SPECIAL VIEWS AP/LAT/OTHER RIGHT Susie Chambers documented in this encounter [facility] 04-06-2022 Instructions Suise Chambers DO - 04/06/2022 10:28 AM EDT CONTUSIONS GENERAL INFORMATION: A contusion, or bruise, is caused by an injury that does not break the skin. Bleeding under the skin causes it to look black and blue. It may take 2 or 3 weeks for the bruising to disappear. INSTRUCTIONS: 1. You may continue your normal daily activities as tolerated. Rest the injured area as much as possible. 2. Apply ice to the injury for 15 minutes each hour (while awake) for the first two days. Put the ice in a plastic bag and place a thin towel between the bag of ice and your skin. 3. After the first 1 to 2 days, you may apply heat to the injury to help relieve pain. You may use a warm heating pad, whirlpool bath, or warm moist towels for 15-20 minutes every hour (while awake) for 48 hours. 4. You may use medicines for pain such as acetaminophen, ibuprofen or aspirin (unless otherwise instructed by your physician). CONTACT YOUR DOCTOR OR RETURN TO THE ED IF: 1. Your pain becomes worse. 2. You develop a temperature over 101 F (38.3 C). 3. The swelling increases greatly in the area of the bruise. 4. Redness or lines of redness develop in the area of the bruise. documented in this encounter [facility] 04-06-2022 History of Present illness Narrative Radiology Service Progress Note PATIENT NAME: Tom Norwood DATE OF SERVICE: April 06, 2022 TIME: 11:25 AM PATIENT IDENTITY VERIFICATION COMPLETED USING TWO (2) IDENTIFIERS: Name and Date of confirmed by patient verbally. FALL SCREENING: Has the patient had 2 falls in the last year or 1 fall with injury or currently using an Ambulatory Assistive Device (Walker, Cane, Wheelchair, Crutches, etc.)? No PATIENT GENDER DATA: Male PATIENT RELEVANT IMPLANT DATA REVIEWED: Not Applicable RADIOLOGY DEPARTMENT: General X-ray: Exam(s) Completed: Pelvis X-Ray: Pelvis General AP Lower Extremity X-Ray(s): Tibia Fibula, Left Upper Extremity X-Ray(s): Elbow, right PERIPHERAL IV DATA: Not applicable SIGNED BY: RT Derrick(Janis) April 06, 2022 11:25 AM documented in this encounter [facility] 03-31-2022 Note HNO ID: [id number] Author: RT Ruma(Janis) Service: Radiology Author Type: Technologist Type: Progress Notes Filed: 03/31/2022 4:46 PM Note Text: Radiology Service Progress Note PATIENT NAME: Tom Norwood DATE OF SERVICE: March 31, 2022 TIME: 4:46 PM PATIENT IDENTITY VERIFICATION COMPLETED USING TWO (2) IDENTIFIERS: Name and Date of confirmed by patient verbally. FALL SCREENING: Has the patient had 2 falls in the last year or 1 fall with injury or currently using an Ambulatory Assistive Device (Walker, Cane, Wheelchair, Crutches, etc.)? No PATIENT GENDER DATA: Male PATIENT RELEVANT IMPLANT DATA REVIEWED: Not Applicable RADIOLOGY DEPARTMENT: CT; Exam(s) Completed: Chest PERIPHERAL IV DATA: Not applicable SIGNED BY: RT Ruma(R) March 31, 2022 4:46 PM [facility] 03-31-2022 History of Present illness Narrative Radiology Service Progress Note PATIENT NAME: Tom Norwood DATE OF SERVICE: March 31, 2022 TIME: 4:46 PM PATIENT IDENTITY VERIFICATION COMPLETED USING TWO (2) IDENTIFIERS: Name and Date of confirmed by patient verbally. FALL SCREENING: Has the patient had 2 falls in the last year or 1 fall with injury or currently using an Ambulatory Assistive Device (Walker, Cane, Wheelchair, Crutches, etc.)? No PATIENT GENDER DATA: Male PATIENT RELEVANT IMPLANT DATA REVIEWED: Not Applicable RADIOLOGY DEPARTMENT: CT; Exam(s) Completed: Chest PERIPHERAL IV DATA: Not applicable SIGNED BY: RT Ruma(R) March 31, 2022 4:46 PM documented in this encounter [facility] 02-24-2022 Evaluation + Plan note Future Scheduled TestsCT Thorax w/o Contrast 02/24/22 [facility] 02-24-2022 Evaluation + Plan note Future Scheduled TestsCT Thorax w/o Contrast 02/24/22MRI Spine Cervical w/o Contrast 07/03/22 [facility] Evaluation + Plan note Future Appointments Appointment Date:02/24/2022 04:30:00 PM Scheduled Provider:JOSE L MCGUIRE DO Location:[facility] Appointment Type:PC OV [facility] Evaluation + Plan note Future Appointments Appointment Date:06/11/2022 02:00:00 PM Scheduled Provider: Location:[facility] Appointment Type:PT Outpatient Evaluation Future Scheduled TestsCT Thorax w/o Contrast 02/24/22 [facility] Evaluation + Plan note Future Appointments Appointment Date:08/18/2023 03:30:00 PM Scheduled Provider: Location:[facility] Appointment Type:OT Outpatient Evaluation Appointment Date:01/18/2024 04:30:00 PM Scheduled Provider:JOSE L MCGUIRE DO Location:[facility] Appointment Type:PC OV Follow Up [facility] Evaluation + Plan note Future Appointments Appointment Date:08/26/2023 08:00:00 AM Scheduled Provider: Location:[facility] Appointment Type:OT Treatment Appointment Date:09/02/2023 08:00:00 AM Scheduled Provider: Location:[facility] Appointment Type:OT Treatment Appointment Date:09/09/2023 08:00:00 AM Scheduled Provider: Location:[facility] Appointment Type:OT Treatment Appointment Date:09/16/2023 08:00:00 AM Scheduled Provider: Location:[facility] Appointment Type:OT Treatment Appointment Date:01/18/2024 04:30:00 PM Scheduled Provider:JOSE L MCGUIRE DO Location:[facility] Appointment Type:PC OV Follow Up [facility] Evaluation + Plan note Future Appointments Appointment Date:01/25/2024 04:00:00 PM Scheduled Provider:JOSE L MCGUIRE DO Location:[facility] Appointment Type:PC OV Follow Up [facility] Evaluation + Plan note Future Appointments Appointment Date:04/01/2024 02:20:00 PM Scheduled Provider:JOHN CANADA Location:UROLOGY Appointment Type:URO 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 Appointment Date:07/25/2024 03:30:00 PM Scheduled Provider:JOSE L MCGUIRE DO Location:[facility] Appointment Type:PC OV Future Scheduled TestsProstate Specific Antigen 01/25/24 [facility] Evaluation + Plan note Future Appointments Appointment Date:07/01/2024 10:00:00 AM Scheduled Provider:JOHN CANADA Location:UROLOGY Appointment Type:URO OV Appointment Date:07/25/2024 03:30:00 PM Scheduled Provider:JOSE L MCGUIRE DO Location:[facility] Appointment Type:PC OV Future Scheduled TestsProstate Specific Antigen 07/02/24Prostate Specific Antigen 01/25/24 [place] Evaluation + Plan note Future Appointments Appointment Date:07/01/2024 10:00:00 AM Scheduled Provider:JOHN CANADA Location:UROLOGY Appointment Type:URO OV Appointment Date:07/25/2024 03:30:00 PM Scheduled Provider:JOSE L MCGUIRE DO Location:[facility] Appointment Type:PC OV Future Scheduled TestsProstate Specific Antigen 01/25/24 [facility] Evaluation + Plan note Future Appointments Appointment Date:07/25/2024 03:30:00 PM Scheduled Provider:JOSE L MCGUIRE DO Location:[facility] Appointment Type:PC OV Appointment Date:09/30/2024 09:40:00 AM Scheduled Provider:JOHN CANADA APRN-CARMINE Location:UROLOGY Appointment Type:URO OV Future Scheduled TestsProstate Specific Antigen 01/25/24 [place] Evaluation + Plan note Future Appointments Appointment Date:11/11/2024 10:00:00 AM Scheduled Provider:JOHN CANADA APRN-CARMINE Location:UROLOGY Appointment Type:URO OV Appointment Date:01/23/2025 04:30:00 PM Scheduled Provider:SOLOMON LOBATO Location:[facility] Appointment Type:PC OV Future Scheduled TestsProstate Specific Antigen 01/25/24 [facility] Evaluation + Plan note Future Appointments Appointment Date:01/02/2025 07:30:00 AM Scheduled Provider:SOLOMON LOBATO Location:[facility] Appointment Type:PC OV Future Scheduled TestsProstate Specific Antigen 01/25/24 [facility] Evaluation + Plan note Future Scheduled TestsProstate Specific Antigen 07/05/25yroid Stimulating Hormone 03/21/25A1C Hemoglobin 03/21/25A1C Hemoglobin 07/05/25Lipid Profile 03/21/25Lipid Profile 07/05/25Albumin/Creatinine Ratio, Random Urine 03/21/25Albumin/Creatinine Ratio, Random Urine 07/05/25Complete Metabolic Panel 03/21/25Complete Metabolic Panel 07/05/25 [facility] Evaluation note Diagnosis Multiple contusions of trunk, initial encounter- Primary Multiple leg contusions, left, initial encounter Contusion of elbow and forearm, right, initial encounter [facility] Multiple contusions of trunk, initial encounter Multiple leg contusions, left, initial encounter [facility] Narrative No data available for this section [facility] Hospital Discharge instructions No data available for this section [facility] Progress note No data available for this section [facility] Reason for referral (narrative)* Diagnostic Procedure Only (Routine) - Closed Specialty Diagnoses / Procedures Referred By Contac t Referred To Contact XR IMAGING Diagnoses Multiple leg contusions, left, initial encounter Procedures XR TIBIA FIBULA 2V AP/LAT LEFT RADIOLOGIC EXAMINATION TIBIA & FIBULA 2 VIEWS Susie Chambers DO [address] [place] [address] Xr Imaging Referral ID Status Reason Start Date Expiration Date V isits Requested Visits Authorized [id number] Closed Auto-Generate d Referral 04/06/2022 05/06/2023 1 1 * Diagnostic Procedure Only (Routine) - Closed Specialty Diagnoses / Procedures Referred By Contac t Referred To Contact XR IMAGING Diagnoses Contusion of elbow and forearm, right, initial encounter Procedures XR ELBOW SPECIAL VIEWS AP/LAT/OTHER RIGHT RADEX ELBOW COMPLETE MINIMUM 3 VIEWS Susie Chambers DO [address] [place] [address] Xr Imaging Referral ID Status Reason Start Date Expiration Date V isits Requested Visits Authorized [id number] Closed Auto-Generate d Referral 04/06/2022 05/06/2023 1 1 * Diagnostic Procedure Only (Routine) - Closed Specialty Diagnoses / Procedures Referred By Contac t Referred To Contact XR IMAGING Diagnoses Multiple contusions of trunk, initial encounter Procedures XR PELVIS 2V INLET/OUTLET RADIOLOGIC EXAMINATION PELVIS 1/2 VIEWS Susie Chambers, DO [address] [place] [address] Xr Imaging Referral ID Status Reason Start Date Expiration Date V isits Requested Visits Authorized [id number] Closed Auto-Generate d Referral 04/06/2022 05/06/2023 1 1 [facility] for referral (narrative)* Diagnostic Procedure Only (Routine) - Closed Specialty Diagnoses / Procedures Referred By Contac t Referred To Contact XR IMAGING Diagnoses Multiple leg contusions, left, initial encounter Procedures XR TIBIA FIBULA 2V AP/LAT LEFT RADIOLOGIC EXAMINATION TIBIA & FIBULA 2 VIEWS Susie Chambers DO [address] [place] [address] Xr Imaging Referral ID Status Reason Start Date Expiration Date V isits Requested Visits Authorized [id number] Closed Auto-Generate d Referral 04/06/2022 05/06/2023 1 1 * Diagnostic Procedure Only (Routine) - Closed Specialty Diagnoses / Procedures Referred By Contac t Referred To Contact XR IMAGING Diagnoses Multiple contusions of trunk, initial encounter Procedures XR PELVIS 2V INLET/OUTLET RADIOLOGIC EXAMINATION PELVIS 1/2 VIEWS Susie Chambers DO [address] [place] [address] Xr Imaging Referral ID Status Reason Start Date Expiration Date V isits Requested Visits Authorized [id number] Closed Auto-Generate d Referral 04/06/2022 05/06/2023 1 1 [facility] for visit Narrative* Diagnostic Procedure Only (Routine) - Closed Specialty Diagnoses / Procedures Referred By Contac t Referred To Contact Radiology / RADIO CT SCAN Diagnoses Other nonspecific abnormal finding of lung field CT CHEST THORAX WO CONTRAST, R91.8 ABNORMAL RADIOLOGIC FINDING OF LUNG FIELD, SPOKE TO SPOUSE, ORDER IN SCANNED DOCUMENTS, AUTH #[id number] EXP 04.18.[address] WO [facility] [address] THORAX WO Jose L Mcguire [address] [place] [address] Scan [facility] [address] [place] [address] Referral ID Status Reason Start Date Expiration Date Visits Re quested Visits Authorized [id number] Closed 03/04/2022 04/18/2022 1 1 [facility] for visit Narrative* Diagnostic Procedure Only (Routine) - Closed Specialty Diagnoses / Procedures Referred By Contac t Referred To Contact XR IMAGING Diagnoses Multiple leg contusions, left, initial encounter Procedures XR TIBIA FIBULA 2V AP/LAT LEFT RADIOLOGIC EXAMINATION TIBIA & FIBULA 2 VIEWS Susie Chambers DO [address] [facility] [address] [facility] [address] [place] [address] Xr Imaging Referral ID Status Reason Start Date Expiration Date V isits Requested Visits Authorized [id number] Closed Auto-Generate d Referral 04/06/2022 05/06/2023 1 1 [facility] Medications Administered Section Inactive Administered Medications - up to 3 most recent administrations Medication Order MAR Action Action Date Dose Rate Site bacitracin 500 unit/gram 1 application topical ointment 1 application, TOPICAL, ONCE, 1 dose, On 04/06/22 at 1100, FOR EXTERNAL USE ONLY APPLY TO: LEG Left apply bandaid Given 04/06/2022 10:43 AM EDT 1 application Summary Purpose Family History No Family History Records Found No data available for this section No data available for this section No data available for this section No data available for this section No data available for this section No data available for this section No Family History Records Found No data available for this section No data available for this section No data available for this section No Family History Records Found No data available for this section No data available for this section No data available for this section No data available for this section No Family History Records FoundNo Family History Records Found Advance Directives No Advanced Directives Records FoundNo Advanced Directives Records FoundNo Advanced Directives Records FoundNo Advanced Directives Records FoundNo Advanced Directives Records Found Additional Source Comments Care Team (unrecognized sect ion and content) Care Team Personnel Name: Mendy Character Impersonator Susie PT Position: P3 Scheduling - Digital Measurement Advisor Advanced Member Role: Other Name: JOSE L MCGUIRE DO Position: P4 Physician - Primary Care Med Service: Active Provider Member Role: Primary Care Physician Address: Address: [address] [place] [address] Care Team Related Persons Name: GIUSEPPE NORWOOD Address: [address] [place], [place] [id number] [place] Care Team Personnel Name: Pineda Brooke Clerk Susie PT Position: P3 Scheduling - Digital Measurement Advisor Advanced Member Role: Other Name: JOSE L MCGUIRE DO Position: P4 Physician - Primary Care Med Service: Active Provider Member Role: Primary Care Physician Address: Address: [address] [place] [address] Care Team Related Persons Name: GIUSEPPE NORWOOD Address: [address], [place] [id number] [place] Care Team Personnel Name: Pineda Brooke Clerk Susie PT Position: P3 Scheduling - Digital Measurement Advisor Advanced Member Role: Other Name: JOSE L MCGUIRE DO Position: P4 Physician - Primary Care Med Service: Active Provider Member Role: Primary Care Physician Address: Address: [address] [place] [address] Care Team Related Persons Name: GIUSEPPE NORWOOD Address: [address], [place] [id number] [place] Care Team Personnel Name: Mendy Character Impersonator Susie PT Position: P3 Scheduling - Digital Measurement Advisor Advanced Member Role: Other Name: JOSE L MCGUIRE DO Position: P4 Physician - Primary Care Med Service: Active Provider Member Role: Primary Care Physician Address: Address: [address] [place] [address] Care Team Related Persons Name: GIUSEPPE NORWOOD Address: Home [address], [place] [id number] Care Team Personnel Name: Mendy Character Impersonator Susie PT Position: P3 Scheduling - Digital Measurement Advisor Advanced Member Role: Other Name: JOSE L MCGUIRE DO Position: P4 Physician - Primary Care Member Role: Primary Care Physician Address: Address: [address] [place] [address] Care Team Related Persons Name: GIUSEPPE NORWOOD Address: Home [address], [place] [id number] Care Team Personnel Name: Mendy Character Impersonator Susie PT Position: P3 Scheduling - Digital Measurement Advisor Advanced Member Role: Other Name: JOSE L MCGUIRE DO Position: P4 Physician - Primary Care Member Role: Primary Care Physician Address: Address: [address] [place] [address] Care Team Related Persons Name: GIUSEPPE NORWOOD Address: Home [address], [place] [id number] Source Comments (unrecognize d section and content) In the event this informatio n is protected by the Federal Confidentiality of Alcohol and Drug Abuse Patient Records regulations: The Federal rules restrict any use of the information to criminally investigate or prosecute any alcohol or drug abuse patient.[facility] the event this information is protected by the Federal Confidentiality of Alcohol and Drug Abuse Patient Records regulations: The Federal rules restrict any use of the information to criminally investigate or prosecute any alcohol or drug abuse patient.[facility] Center[facility] the event this information is protected by the Federal Confidentiality of Alcohol and Drug Abuse Patient Records regulations: The Federal rules restrict any use of the information to criminally investigate or prosecute any alcohol or drug abuse patient.[facility] Care Teams (unrecognized sec tion and content) Journeyman Electrician Pv Installer Relationship Specialty Start Date End Date ShaylaJose L [address] [address] PCP - General Family Practice 03/13/22 Journeyman Electrician Pv Installer Relationship Specialty Start Date End Date BrunswickJose L [address] [address] PCP - General Family Practice 03/13/22 Journeyman Electrician Pv Installer Relationship Specialty Start Date End Date BrunswickJose L [address] [address] PCP - General Family Practice 03/13/22 Reason for Visit (unrecogniz ed section and content) Reason Comments Right Hip Pain Fall into a drain at customers home--Thursday. Right hip pain, 2.0cm laceration on left simeon, right elbo pain----tetnus is up to date (unrecognized sect ion and content) No Status Records FoundNo Status Records FoundNo Status Records FoundNo Status Records FoundNo Status Records Found INFORMATION SOURCE (unrecogn ized section and content) DATE CREATED AUTHOR 04/13/2022 [facility] DATE CREATED AUTHOR AUTHOR'S ORGANIZ ATION 04/06/2024 [facility] ([place]) DATE CREATED AUTHOR AUTHOR'S ORGANIZ ATION 07/30/[address] [facility] DATE CREATED AUTHOR AUTHOR'S ORGANIZ ATION 04/02/2025 [facility] DATE CREATED AUTHOR AUTHOR'S ORGANIZ ATION 04/23/2025 [facility] FOR RECORDS PERTAINING TO PATIENTS WHO ARE OR HAVE BEEN ENROLLED IN A CHEMICAL DEPENDENCY/SUBSTANCEABUSE PROGRAM, SOME INFORMATION MAY BE OMITTED. This clinical summary was aggregated from multiple sources. Caution should be exercised in using it in the provision of clinical care. This summary normalizes information from multiple sources, and as a consequence, information in this document may materially change the coding, format and clinical context of patient data. In addition, data may be omitted in some cases. CLINICAL DECISIONS SHOULD BE BASED ON THE PRIMARY CLINICAL RECORDS. [facility]. provides no warranty or guarantee of the accuracy or completeness of information in this document.
--- NOTE | 2025-04-24 06:54 | MRI_ITS ---
PROCEDURE: SPINE LUMBAR (ROUTINE) 04/24/2025 MRI of the lumbar spine without contrast. REASON FOR EXAM: SPONDYLOLISTHESIS Right leg pain TECHNIQUE: Procedure Code: MRISPL Modality: MR Procedure: SPINE LUMBAR (ROUTINE) COMPARISON: None FINDINGS: Vertebrae: The vertebral bodies are of normal height. There is no abnormal marrow signal. No compression fracture noted. Alignment: No scoliosis. 4 mm anterolisthesis of L3 on L4 and 5 mm anterolisthesis of L4 on L5. Conus Medullaris: Ends normally at L1 L1-2: Unremarkable L2-3: Unremarkable L3-4: Mild disc desiccation. Diffuse disc bulge. Severe facet arthropathy and severe ligamentum flavum redundancy accounting for severe central stenosis. Mild bilateral encroachment L4-5: Diffuse disc desiccation and loss of T2 signal. Severe facet arthropathy. Moderate central stenosis with mass effect on both descending L4 and L5 nerve roots as they course of the lateral recess. Bilateral foraminal encroachment L5-S1: Diffuse disc desiccation with mild central protrusion. Mild foraminal encroachment. Severe facet arthropathy. No destructive process. Sacrum: Normal Paraspinal soft tissues are unremarkable. There is no retroperitoneal lymphadenopathy. MRI/Spine Lumbar (Routine) IMPRESSION: Grade 1 anterolisthesis of L3 on L4 and L4 on L5 with accompanying facet arthro benigno accounting for severe central stenosis at L3-4 and moderate central stenosis at L4-5. There is mass effect on the descen ding L4 and L5 nerve roots at L4-5. Bilateral foraminal encroachment at L3-4 and L4-5, mild. Small central protrusion at L5-S1 without significant mass effect. Reading Location: [facility]
== END | disposition home or self-care (01) ==
LOC: MRI 06:45
PROVIDERS: Referring Provider Specialist; Visit Provider Specialist
DX: M43.17 Spondylolisthesis, lumbosacral region (principal)
CPT/HCPCS: 72148